=== PATIENT | female | born 1935 | race Caucasian/White ===

== ENCOUNTER → 2016-03-14 | Outpatient (CLI) | payer OTHER ==
[2016-03-14 14:01] LABS: BASO % 0.7 %; BASO ABS # 0.04 K/uL (0-0.2); COMPLETE YES; EOS % 3.9 %; HEMATOCRIT 40.6 % (37-47); IG% 0.2 %; LYMPH % 25.5 %; LYMPH ABS # 1.52 K/uL (1.2-3.4); MEAN CELL VOLUME 90.4 fL (80-100); MEAN CORPUSCULAR HEMOGLOBIN 29.4 pg (25-34); MEAN CORPUSCULAR HGB CONC 32.5 g/dl (32-36); MEAN PLATELET VOLUME 11.6 fL (7.4-10.4); MONO % 7.4 %; NEUT % 62.3 %; PLATELET COUNT 208 K/uL (130-400); RED BLOOD COUNT 4.49 M/uL (4.2-5.4); WHITE BLOOD COUNT 5.95 K/uL (4.8-10.8)
[2016-03-14 14:10] LABS: ALT/SGPT 27 U/L (12-78); BLOOD UREA NITROGEN 14 mg/dl (7-18); BUN/CREATININE RATIO 14.2 (10-20); CALCIUM 9.6 mg/dl (8.5-10.1); CARBON DIOXIDE 27 mmol/L (21-32); CHLORIDE 106 mmol/L (98-107); CHOLESTEROL 208 mg/dl (0-200); GLUCOSE 106 mg/dl (70-99); POTASSIUM 4.7 mmol/L (3.5-5.1); SODIUM 140 mmol/L (136-145)
[2016-03-14 14:13] LABS: ALB/GLOB RATIO 1.2 (0.9-2); ALKALINE PHOSPHATASE 65 U/L (45-117); AST/SGOT 22 U/L (15-37); CHOLESTEROL/HDL RATIO 3.1; HDL CHOLESTEROL 68 mg/dl; LDL CHOLESTEROL CALCULATED 112 mg/dl; TRIGLYCERIDES 141 mg/dl (0-150); VERY LOW DENSITY LIPOPROT CALC 28 mg/dl
== END | disposition home or self-care (01) ==
LOC: C.LABSPEC 14:41
PROVIDERS: ATTEND Family Medicine
DX: I10 Essential (primary) hypertension (principal); E78.2 Mixed hyperlipidemia; J30.9 Allergic rhinitis, unspecified; J45.30 Mild persistent asthma, uncomplicated; K21.9 Gastro-esophageal reflux disease without esophagitis

== ENCOUNTER → 2016-04-18 | Outpatient (CLI) | payer OTHER ==
[2016-04-18 14:04] LABS: BASO % 0.4 %; BASO ABS # 0.02 K/uL (0-0.2); COMPLETE YES; EOS % 3.6 %; HEMATOCRIT 39.9 % (37-47); LYMPH % 23.1 %; LYMPH ABS # 1.29 K/uL (1.2-3.4); MEAN CELL VOLUME 91.5 fL (80-100); MEAN CORPUSCULAR HEMOGLOBIN 29.8 pg (25-34); MEAN CORPUSCULAR HGB CONC 32.6 g/dl (32-36); MEAN PLATELET VOLUME 11.9 fL (7.4-10.4); MONO % 8.6 %; NEUT % 64.3 %; PLATELET COUNT 183 K/uL (130-400); RED BLOOD COUNT 4.36 M/uL (4.2-5.4); WHITE BLOOD COUNT 5.59 K/uL (4.8-10.8)
[2016-04-18 14:14] LABS: ALT/SGPT 24 U/L (12-78); AST/SGOT 12 U/L (15-37); BLOOD UREA NITROGEN 22 mg/dl (7-18); BUN/CREATININE RATIO 20.2 (10-20); CALCIUM 8.9 mg/dl (8.5-10.1); CARBON DIOXIDE 30 mmol/L (21-32); CHLORIDE 106 mmol/L (98-107); GLUCOSE 102 mg/dl (70-99); POTASSIUM 4.5 mmol/L (3.5-5.1); SODIUM 141 mmol/L (136-145)
[2016-04-18 14:16] LABS: ALB/GLOB RATIO 1.1 (0.9-2); ALKALINE PHOSPHATASE 59 U/L (45-117)
== END | disposition home or self-care (01) ==
LOC: C.LABSPEC 13:43
PROVIDERS: ATTEND Family Medicine
DX: I10 Essential (primary) hypertension (principal)

== ENCOUNTER → 2016-07-19 | Outpatient (CLI) | payer OTHER ==
[2016-07-19 15:12] LABS: ALT/SGPT 25 U/L (12-78); AST/SGOT 17 U/L (15-37); BLOOD UREA NITROGEN 19 mg/dl (7-18); BUN/CREATININE RATIO 18.9 (10-20); CALCIUM 8.9 mg/dl (8.5-10.1); CARBON DIOXIDE 28 mmol/L (21-32); CHLORIDE 106 mmol/L (98-107); GLUCOSE 98 mg/dl (70-99); POTASSIUM 4.7 mmol/L (3.5-5.1); SODIUM 140 mmol/L (136-145)
[2016-07-19 15:14] LABS: ALKALINE PHOSPHATASE 73 U/L (45-117)
== END | disposition home or self-care (01) ==
LOC: C.LABSPEC 13:44
PROVIDERS: ATTEND Family Medicine
DX: I10 Essential (primary) hypertension (principal)

== ENCOUNTER → 2017-05-08 | Outpatient (CLI) | payer OTHER ==
[2017-05-08 13:20] LABS: BASO % 0.3 %; BASO ABS # 0.02 K/uL (0-0.2); EOS % 3.7 %; EOS ABS # 0.24 K/uL (0-0.5); HEMOGLOBIN 13.4 g/dL (12.0-16.0); IG# 0.02 K/uL (0.00-0.02); LYMPH % 19.6 %; LYMPH ABS # 1.27 K/uL (1.2-3.4); MEAN CELL VOLUME 87.4 fL (80-100); MEAN CORPUSCULAR HEMOGLOBIN 28.6 pg (25-34); MEAN CORPUSCULAR HGB CONC 32.7 g/dl (32-36); MEAN PLATELET VOLUME 10.9 fL (7.4-10.4); MONO % 6.6 %; MONO ABS # 0.43 K/uL (0.11-0.59); NEUT % 69.5 %; NEUT ABS # 4.49 K/uL (1.4-6.5); PLATELET COUNT 218 K/uL (130-400); RED CELL DISTRIBUTION WIDTH CV 13.9 % (11.5-14.5); RED CELL DISTRIBUTION WIDTH SD 44.3 fL (36.4-46.3); WHITE BLOOD COUNT 6.47 K/uL (4.8-10.8)
[2017-05-08 14:16] LABS: ALBUMIN 3.7 gm/dl (3.4-5.0); ALT/SGPT 25 U/L (12-78); AST/SGOT 18 U/L (15-37); BLOOD UREA NITROGEN 15 mg/dl (7-18); CALCIUM 9.1 mg/dl (8.5-10.1); CARBON DIOXIDE 30 mmol/L (21-32); CHOLESTEROL 176 mg/dl (0-200); CREATININE 0.98 mg/dl (0.60-1.20); GLUCOSE 106 mg/dl (70-99); POTASSIUM 4.8 mmol/L (3.5-5.1); SODIUM 137 mmol/L (136-145)
[2017-05-08 14:20] LABS: ALKALINE PHOSPHATASE 73 U/L (45-117); LDL CHOLESTEROL CALCULATED 99 mg/dl; TOTAL PROTEIN 7.5 gm/dl (6.4-8.2)
== END | disposition home or self-care (01) ==
LOC: C.LABSPEC 12:39
PROVIDERS: ATTEND Family Medicine
DX: Z00.00 Encounter for general adult medical examination without abnormal findings (principal); I10 Essential (primary) hypertension; E78.2 Mixed hyperlipidemia

== ENCOUNTER 2017-05-19 16:13 | Emergency (ER) | payer OTHER ==
[~2017-05-19] VITALS: Ht 160 cm; Wt 78.0 kg
[2017-05-19 16:16] VITALS: TEMP 36.7; Ht 160 cm; Wt 78.0 kg
--- NOTE | 2017-05-19 17:01 | DIAGNOSTIC IMAGING REPORT ---
R HIP UNILATERAL 2 VIEWS CLINICAL HISTORY: R hip pain COMPARISON: None. DISCUSSION: No acute fractures are visualized. There is joint space narrowing involving the right hip. There is a mixed lytic/sclerotic lesion involving the right acetabulum measuring 5 cm. And remains in bone scan might be considered in follow-up to determine whether this is metabolically active. Sclerotic changes involve the symphysis pubis, are likely on a chronic stress related basis. IMPRESSION: 1. No acute fractures or dislocations 2. Moderate osteoarthritic changes within the left hip with moderate joint space narrowing 3. 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 A nuclear medicine bone scan might be considered in follow-up to determine whether this is a metabolically active lesion Electronically signed by: Munir Sheldon M.D. 05/19/2017 4:59 PM Dictated Date/Time: 05/19/2017 4:56 PM
[2017-05-19] MEDS ORDERED: TURM1CAP2 PO (17:28)
[2017-05-19] MEDS ORDERED: TOPI100T20 PO (17:28)
[2017-05-19] MEDS ORDERED: MONT1TAB3 PO (17:28)
[2017-05-19] MEDS ORDERED: RABE20TA5 PO (17:28)
[2017-05-19] MEDS ORDERED: ESTR1 PO (17:28)
[2017-05-19] MEDS ORDERED: CETI10TA84 PO (17:28)
[2017-05-19] MEDS ORDERED: ASPI81TA28 PO (17:28)
[2017-05-19] MEDS ORDERED: PRED20TA2 PO (17:29)
[2017-05-19] MEDS ORDERED: MULT-513 PO (17:34)
[2017-05-19] MEDS ORDERED: ADVIN25/60 INH (17:34)
[2017-05-19] MEDS ORDERED: CRAN500C2 PO (17:34)
[2017-05-19] MEDS ORDERED: FLUT0.15 NAE (17:34)
[2017-05-19] MEDS ORDERED: TRAM-10 PO (17:34)
[2017-05-19] MEDS ORDERED: VNTHFA/IN INH (17:34)
[2017-05-19] MEDS ORDERED: GARL1TAB8 PO (17:34)
[2017-05-19 17:43] VITALS: BP 158/72; PULSE 47; O2SAT 93
--- NOTE | 2017-05-19 18:38 | EMERGENCY ROOM VISIT NOTE ---
ED Visit Note First contact with patient: 16:28 I have personally evaluated this patient examined her and reviewed the pertinent labs and data. I have discussed the case with Luís Burrell, the physician administrative personal assistant and agree with the plan. Please refer to the PA note. This patient's been having chronic right hip pain. She looks well on exam. She has no neurologic deficits. She has good peripheral pulses in that leg. she has no tenderness the calf. X-rays show degenerative changes. We are going to arrange for her to follow-up with orthopedist and she is going to continue use her Ultram for pain. She should return if: increasing pain, worsening of symptoms, any new problems or concerns
--- NOTE | 2017-05-20 06:24 | EMERGENCY ROOM VISIT NOTE ---
ED Visit Note First contact with patient: 16:28 Chief Complaint: Right hip pain. History of Present Illness: Ms. Sherman is an 81-year-old white female who is brought into the ED via wheelchair accompanied by female friend complaining of right hip pain. Historically patient denies any previous significant injuries or surgeries to the right hip. Patient reports she has been having ongoing hip pain for the last 1.5 years. She has never had her hip pain evaluated previously. She reports over the last week her pain has increased and is radiating down towards her knee over the lateral aspect of the thigh. Currently she describes her pain as a sharp sensation. She rates her discomfort 8/10. Her pain worsens with palpation of the hip, ambulation and lying on the hip. She has not identified any alleviating factors related to the pain. Patient reports she does take ibuprofen during the day with mild relief of her discomfort and at night at sleep she takes tramadol which allows her to sleep but not lie on her hip. She denies any associated recent trauma; direct or repetitive, fevers, chills, sweats, skin eruptions, skin color changes , back pain, abdominal pain, genital paresthesias, bowel and bladder dysfunction , lower extremity weakness/numbness/tingling. Additionally patient does report approximately 2 weeks ago she was on oral steroids for a bronchitis and reported that she had significant improvement of her pain with the steroids. Review of Systems: As noted above in history of present illness. 8 body systems were reviewed and found to be negative as noted above. Past Medical History: Hypertension, kidney disease, asthma, status post hysterectomy and right knee arthroplasty. Current Medications: Medications Dose Route/Sig Max Daily Dose Days Date Category Dose Instructions Ultram (Tramadol HCl) 50 Mg Tab 50 Mg PO Q6 PRN 05/19/17 Reported Advair Diskus 250/50 60 Dose (Fluticasone Prop/Salmeterol) 1 Ea Aerp 1 Puff INH BID 05/19/17 Reported Ventolin Hfa (Albuterol) 200 Puffs/04709 Mcg Aers 2 Puffs INH Q6H PRN 05/19/17 Reported Flonase Allergy Relief (Fluticasone Propionate (Nasal)) 50 Mcg/Act Spr 1 [place] ALEYDA DAILY 05/19/17 Reported Mvi With Minerals (Multivitamins/Minerals) Tab 1 Tab PO DAILY 05/19/17 Reported Garlic Unknown Strength Tab 1 Tab PO DAILY 05/19/17 Reported Cranberry (Cranberry (Vaccinium Macrocarp) 500 Mg Cap 500 Mg PO DAILY 05/19/17 Reported Turmeric (Turmeric (Curcuma Longa)) Unknown Strength Cap 1 Tab PO DAILY 05/19/17 Reported Topamax (Topiramate) 100 Mg Tab 100 Mg PO DAILY 05/19/17 Reported Aciphex (Rabeprazole Sodium) Unknown Strength Tab 1 Tab PO DAILY PRN 05/19/17 Reported Aspirin Ec (Aspirin) 81 Mg Tab 81 Mg PO DAILY 05/19/17 Reported Singulair (Montelukast Sodium) 10 Mg Tab 10 Mg PO DAILY 05/19/17 Reported Zyrtec (Cetirizine HCl) 10 Mg Tab 10 Mg PO DAILY 05/19/17 Reported Estrace (Estradiol) 1 Mg Tab 1 Mg PO DAILY 05/19/17 Reported Allergies to Medications: Ampicillin, cephalexin, clindamycin, morphine and oxybutynin. Social History: Patient is currently retired; she lives by herself and feels safe in her home environment; she denies tobacco and alcohol use. Physical Examination: Vital Signs: Date Time Temp Pulse Resp B/P (MAP) Pulse Ox O2 Delivery O2 Flow Rate FiO2 05/19/17 17:43 47 18 158/72 93 05/19/17 16:16 36.7 50 16 182/76 95 Room Air GENERAL: 81-year-old female in mild to moderate distress due to pain, nontoxic- appearing, afebrile and hemodynamically stable. NEUROLOGICAL: Awake, alert and oriented to person, place and time. Answering questions appropriately and following commands. Good hand eye coordination. SKIN: Warm, dry and pink. No soft tissue eruptions or trauma noted. BACK: No tenderness over the bony lumbar spine. No tenderness or muscle spasm throughout the lumbar para musculature. THORAX: Lungs sounds are clear to auscultation and equal bilaterally with symmetrical chest wall. ABDOMEN: Flat, soft and nontender. Positive bowel sounds in all quadrants. No guarding, rigidity or organomegaly. RIGHT LOWER EXTREMITY: No gross bony deformity. No shortening or malrotation. Moderate tenderness over the femoral head and down the lateral aspect of the femur to mid shaft. There was no swelling, erythema, ecchymosis, bony deformity or bony crepitus throughout this area. No tenderness over the anterior hip/groin area and no tenderness throughout the posterior and buttocks area. She had full range of motion and 4/5 muscle strength with pain at the hip. There is also full range of motion of the knee and the ankle. SADA and VA test were positive for pain but she had full range of motion. 2+ patellar and Achilles deep tendon reflexes intact and equal bilaterally. Throughout the leg the skin was warm and pink and capillary refill is brisk. She was able to distinguish light sensations to all dermatomes. EXTREMITIES: Moves all extremities well on command and with purpose. All distal neurovascular statuses are intact and equal bilaterally. No calf tenderness or cords. ED Course: Patient is assessed as noted above. Patient's medication list was reviewed. Patient was offered pain medication and refused. Right Hip X-Rays: Were read by myself and the radiologist and shows no acute fractures or dislocations and moderate osteoarthritic changes within the hip with joint space narrowing. Radiologist also notes a 5 cm mixed lytic/ sclerotic lesion involving the right acetabulum of unclear etiology. Patient's case was reviewed with Dr. Sawyer; he independently assessed the patient we agreed on diagnostic approach, treatment, disposition and plan. Clinical Impression: Right hip acute osteoarthritis. Decision-Making: Initially my differential diagnosis I considered osteoarthritis , labral tear, impingement syndrome, occult fracture, bursitis, synovitis and other causes. Disposition: Patient discharged home in stable condition accompanied by female friend; prior to departure she was reassessed and subjectively reported she was feeling better and rated her discomfort 6/10. Plan: Patient was encouraged to continue her current medications as prescribed. Patient was prescribed 20 mg of prednisone once a day until followed up with orthopedics for definitive care and treatment. Patient does report she has been using her walker but still feels slightly unstable; I did encourage her to use her walker for improved stability. Patient was encouraged to use ice on the areas of pain 5-6 times a day for 20- 30 minutes. Patient was encouraged to follow-up with Dr. Gamez for specialty orthopedic care. Additionally patient reports she moved into this area not too long ago and did request information about possible follow-up with test developer for her kidney disease I did give her the contact information for the on-call test developer Dr. Angela Nance. Patient was encouraged return the ED for worsening/uncontrolled pain, right leg weakness/numbness/tingling or any new/concerning symptoms.
== END 2017-05-19 17:43 | disposition home or self-care (01) ==
LOC: C.EDB 16:14 → C.EDD 17:43
DX: M16.11 Unilateral primary osteoarthritis, right hip (principal); I12.9 Hypertensive chronic kidney disease with stage 1 through stage 4 chronic kidney disease, or unspecified chronic kidney disease; N18.9 Chronic kidney disease, unspecified; J45.909 Unspecified asthma, uncomplicated; Z79.82 Long term (current) use of aspirin; Z98.890 Other specified postprocedural states

== ENCOUNTER → 2017-05-21 | Outpatient (CLI) | payer OTHER ==
[~2017-05-21] MED LIST: ADVIN25/60 INH; ASPI81TA28 PO; CETI10TA84 PO; CRAN500C2 PO; ESTR1 PO; FLUT0.15 NAE; GARL1TAB8 PO; MONT1TAB3 PO; MULT-513 PO; PRED20TA2 PO; RABE20TA5 PO; TOPI100T20 PO; TRAM-10 PO; TURM1CAP2 PO; VNTHFA/IN INH
== END | disposition home or self-care (01) ==
LOC: C.RDSM 15:58
PROVIDERS: ATTEND Orthopaedic Surgery
DX: R52 Pain, unspecified (principal)

== ENCOUNTER → 2017-05-29 | Outpatient (CLI) | payer OTHER ==
--- NOTE | 2017-05-29 10:27 | DIAGNOSTIC IMAGING REPORT ---
PELVIS WITHOUT CONTRAST (MRI) CLINICAL HISTORY: R HIP ARTHRITIS, right acetabular mass COMPARISON STUDY: Conventional radiographic study dated 05/19/2017 FINDINGS: Imaging was performed in the axial and coronal planes. Corresponding to the right acetabular lesion is a 41 mm T1 hypointense lesion demonstrating a markedly hypointense T1 rim. The lesion demonstrates increased T2 signal. There is a small T2 bright extra osseous component measuring 11 mm. There is secondary iliopsoas edema and edema is visualized within the right iliac fossa. There are arthritic changes within the right hip with marked cartilaginous narrowing. The findings likely represent a degenerative intraosseous ganglion with a small extraosseous component. There is secondary inflammatory changes involving the iliopsoas. T2 bright lesions are also present within the left acetabular region, likely representing degenerative cysts. Osteoarthritic changes on the left are more mild than on the right. Incidental note is made of colonic diverticulosis. There is no pathologic adenopathy. This scan was reviewed with a fellow radiologist. IMPRESSION: 1. The right acetabular lesion described on conventional radiographic evaluation, in all likelihood represents a degenerative intraosseous ganglion with a small extraosseous component. The extraosseous component results in iliac fossa edema and secondary inflammatory change within the right iliopsoas. 2. Moderately advanced osteoarthritic changes within the right hip. Mild osteoarthritic changes of the left hip. 3. Colonic diverticulosis Electronically signed by: Munir Sheldon M.D. 05/29/2017 10:26 AM Dictated Date/Time: 05/29/2017 10:11 AM
== END | disposition home or self-care (01) ==
LOC: C.MRIBC 08:44
PROVIDERS: ATTEND Orthopaedic Surgery
DX: M16.11 Unilateral primary osteoarthritis, right hip (principal); M25.851 Other specified joint disorders, right hip

== ENCOUNTER 2017-09-17 06:30 | Inpatient (IN) | payer OTHER ==
[2017-08-13 07:58] VITALS: BMI 29.0
[2017-08-26 10:10] VITALS: Ht 162.6 cm; Wt 79.7 kg
--- NOTE | 2017-08-26 11:14 | PAT Medication Instructions ---
Service Date Aug 26, 2017. Current Home Medication List Albuterol Hfa (Ventolin Hfa), 2 PUFFS INH Q6H PRN for SOB/Wheezing Albuterol Sulf (Proventil 0.083% 2.5MG/3ML), 2.5 MG INH QID PRN for SOB/Wheezing Aspirin (Aspirin Ec), 81 MG PO QAM Cetirizine (Zyrtec), 10 MG PO QPM Diltiazem Hcl Ext Rel (Tiazac), 120 MG PO QAM Estradiol (Estrace), 1 MG PO QAM Fluticasone Prop/Salmeterol (Advair Diskus 250/50 60 Dose), 1 PUFF INH QAM Fluticasone Propionate (Nasal) (Flonase Allergy Relief), 1 SPRAY ALEYDA QAM Metoprolol Succ (Toprol Xl) (Toprol-Xl ), 100 MG PO QAM Montelukast Sodium (Singulair), 10 MG PO HS Rabeprazole Sodium (Aciphex), 1 TAB PO QAM Simvastatin (Zocor), 40 MG PO QPM Tramadol (Ultram), 50 MG PO Q6 PRN for Pain Medication Instructions For Your Scheduled Surgery - Check with surgeon for instructions: Estradiol (Estrace), 1 MG PO QAM - Take the following medications the morning of surgery with a sip of water: Rabeprazole Sodium (Aciphex), 1 TAB PO QAM Tramadol (Ultram), 50 MG PO Q6 PRN for Pain (okay to take up to 4 hours prior to surgery if needed) Metoprolol Succ (Toprol Xl) (Toprol-Xl ), 100 MG PO QAM Fluticasone Prop/Salmeterol (Advair Diskus 250/50 60 Dose), 1 PUFF INH QAM Fluticasone Propionate (Nasal) (Flonase Allergy Relief), 1 SPRAY ALEYDA QAM Diltiazem Hcl Ext Rel (Tiazac), 120 MG PO QAM Albuterol Hfa (Ventolin Hfa), 2 PUFFS INH Q6H PRN for SOB/Wheezing (if needed) Albuterol Sulf (Proventil 0.083% 2.5MG/3ML), 2.5 MG INH QID PRN for SOB/ Wheezing (if needed) Aspirin (Aspirin Ec), 81 MG PO QAM - Take the following medications as scheduled the night before surgery: Simvastatin (Zocor), 40 MG PO QPM Tramadol (Ultram), 50 MG PO Q6 PRN for Pain (if needed) Montelukast Sodium (Singulair), 10 MG PO HS Cetirizine (Zyrtec), 10 MG PO QPM Albuterol Hfa (Ventolin Hfa), 2 PUFFS INH Q6H PRN for SOB/Wheezing (if needed) Albuterol Sulf (Proventil 0.083% 2.5MG/3ML), 2.5 MG INH QID PRN for SOB/ Wheezing (if needed) If you have any questions please call us at [phone] or [phone] or [phone]
[2017-08-26 11:48] LABS: ALBUMIN 3.6 gm/dl (3.4-5.0); CALCIUM 8.9 mg/dl (8.5-10.1); CREATININE 1.13 mg/dl (0.60-1.20); POTASSIUM 4.2 mmol/L (3.5-5.1); PTT PATIENT 25.6 SECONDS (21.0-31.0); TOTAL PROTEIN 7.1 gm/dl (6.4-8.2)
--- NOTE | 2017-08-26 11:52 | DIAGNOSTIC IMAGING REPORT ---
TWO VIEW CHEST CLINICAL HISTORY: Preoperative examination. FINDINGS: PA and lateral chest radiographs are obtained. No prior studies are available for comparison at the time of dictation. The heart is enlarged and there is atherosclerotic calcification of the thoracic aorta. The pulmonary vasculature is noncongested. There is a large hiatal hernia. Nonspecific interstitial thickening is likely chronic. There is bibasilar atelectasis. No airspace consolidation or pleural effusion is identified. There is no pneumothorax. The skeletal structures are osteopenic. Degenerative change and hyperkyphosis are noted in the thoracic spine. IMPRESSION: 1. Cardiomegaly with no active disease in the chest. 2. Large hiatal hernia. Electronically signed by: Deng Rolle M.D. 08/26/2017 11:51 AM Dictated Date/Time: 08/26/2017 11:50 AM
--- NOTE | 2017-08-26 12:13 | History and Physical ---
History & Physical Date of Service Aug 26, 2017. History & Physical CHIEF COMPLAINT: Right hip pain. HISTORY OF PRESENT ILLNESS: This 82-year-old female presents to clinic today for preoperative history and physical. The patient complains of a 2+ year history of significant right hip pain with no appreciable injury. She states that over the past few years, she has experienced mild relief with prescription tramadol. She states that her pain increases when she stands and refers pain localization to her right groin. The patient has failed conservative treatment with physical therapy and ultrasound-guided steroid injections. She states she has had to use a cane to ambulate since April and that the pain is affecting her activities of daily living. PAST SURGICAL HISTORY: Right total knee arthroplasty, hysterectomy, bilateral cataract surgery. PAST MEDICAL HISTORY: Stage III chronic kidney disease, hypertension, hyperlipidemia, gastroesophageal reflux, bronchitis, asthma, hiatal hernia, obesity. FAMILY HISTORY: Positive for heart disease, cancer and diabetes. ALLERGIES: THE PATIENT HAS MEDICATION ALLERGIES TO AMPICILLIN, CLINDAMYCIN, MORPHINE, KEFLEX and DITROPAN. CURRENT MEDICATIONS: Albuterol HFA 90 mcg inhaler as needed for wheezing, aspirin 81 mg daily, Zyrtec 10 mg daily, diltiazem 120 mg daily, estradiol 1 mg daily, Flonase 50 mg daily, Toprol-XL 100 mg daily, Singulair 10 mg daily, Aciphex 20 mg daily, Zocor 40 mg at bedtime, tramadol 50 mg tablets 1 tab every 4 hours as needed for pain. SOCIAL HISTORY: The patient denies a history of smoking, alcohol or illicit drug use. PHYSICAL EXAMINATION: Skin: The patient's skin is normal in appearance. No open skin lesions or discharge. Eyes: Pupils are equal and reactive to light and accommodating. Extraocular movements are intact. Throat: Posterior oropharynx clear with absence of edema, erythema or exudate. Cardiovascular exam: The patient has a regular rate and rhythm with no murmurs or gallops appreciated. Lungs: Auscultation of lung sosa reveals clear breath sounds throughout, but diminished air flow in the bases. There is no wheezing, rales or rhonchi appreciated. Abdomen is mildly obese, nondistended, nontender with normoactive bowel sounds. Extremities: Right hip, the patient has a positive straight leg raise test, a positive Stinchfield test flexion of the hip to 80 degrees, internal rotation to 5 degrees and external rotation to 30 degrees, all with referred pain to the groin area. There is no edema, erythema, ecchymosis, warmth or palpable bony deformity. The patient has difficulty performing passive abduction or adduction. She is neurovascularly intact in the right lower extremity. Her peripheral pulses are palpable. Her capillary refill is less than 2 seconds. Neurologic exam: Cranial nerves II-XII are intact with no motor or sensory deficit. Psychological/General exam: Patient is Alert and oriented x 3 with proper grooming and hygiene. DIAGNOSIS: Right hip arthritis; acetabular cyst. PROCEDURE: Right total hip arthroplasty; bone grafting of acetabular cyst; possible biopsy. PLAN: The patient is scheduled to undergo this procedure with [facility] with Dr. Jonatan Kaur on September 11, 2017. Risks and complications of the surgery such as infection, bleeding, pain, scarring, nerve and blood vessel damage, weakness, wound problems, stiffness, incomplete relief of symptoms, heart attack, stroke, , hardware failure, loosening or fracture, dislocation, leg length inequality, blood clots and embolism were explained to the patient by Dr. Kaur during her last visit. The patient understood the risks and informed consent to perform the procedure was obtained. We have obtained medical clearance from the patient's oracle developer, Dr. Jay. She states she has an appointment this with her PCP, Dr. Serrano, and we will obtain clearance from him as well. We will also obtain a CBC with differential, complete metabolic panel, PT, INR, PTT, blood type and screen, urinalysis, urine culture, EKG, chest x-ray, hemoglobin A1c and a nasal swab for MRSA prior to the procedure. The patient states she will obtain these necessary tests this morning before her preanesthesia clearance appointment. The patient states that she has a hip kit at home from her 's previous hip surgery. She has a walker at home that she will bring with her on the day of surgery. She would like to do in-home therapy with [facility]. I provided her with a card to contact them and I also filled out the proper paperwork to have them do a preoperative evaluation for the patient. Advised Ms. Sherman that we will provide her with a prescription for postoperative pain medication for Extra Strength Tylenol and that she will increase her aspirin to 2 times daily for 30 days postoperatively for DVT prophylaxis. She will also use ASHISH stockings and SCDs on the lower extremities to prevent blood clots, as well. The patient states she is not able to take anti-inflammatories, so I will not provide her with a prescription for Celebrex. The patient was given information about lectures she can attend at [facility] on the first and third Friday of each month regarding joint replacement. She was also given information about antibiotics prior to dental procedures. She states she already has this established fro her previous total knee arthroplasty. I provided her with a handicap placard that she can use for 6 months after the procedure. The patient is scheduled for a postoperative followup with myself on September 19, at 12:45 for her 2-week postoperative followup. At that time, she states if she is doing well, she would like an order for outpatient physical therapy that she will obtain in the [facility]. The patient verbalized understanding of all information provided during today's visit, thanks us for the care she has received and states that if she has questions or concerns that should arise prior to her surgery date, she will contact the clinic accordingly.
[~2017-09-17] VITALS: Ht 162.6 cm; Wt 79.7 kg
[2017-09-17] VITALS (9 sets, daily range): BP systolic 126–169; BP diastolic 50–72; PULSE 49–64; TEMP 36.3–36.7; O2SAT 92–96
[2017-09-17] MEDS: TRANEXAMIC ACID INJ 1,000 MG x 2 Bags IV SCH ×4 (06:00→06:30)
[~2017-09-17 06:30] MED LIST changes: +ACETAMINOPHEN 500 MG TAB PO SCH; +ALBINS/ INH; +CEFAZOLIN 2000MG IV PUSH 15 ML IV SCH; +CHECK SCOPOLAMINE PATCH PLACEMENT SCH; -CRAN500C2 PO; +CeleBREX 200 MG CAP PO SCH; +DEXAMETHASONE 4 MG TAB PO SCH; +DILT120C68 PO; +FAMOTIDINE 20 MG TAB PO SCH; -GARL1TAB8 PO; +LACTATED RINGER'S 1000ML 1,000 ML IV SCH; +LACTATED RINGER'S 1000ML 500 ML IV SCH; +LACTATED RINGER'S 1000ML IV SCH; +METO100T44 PO; -MULT-513 PO; -PRED20TA2 PO; +ROPIVACAINE 5MG/ML 30 ML 150 MG, BUPIVACAINE 0.5% MPF INJ 30 ML, EpINEphrine HCL INJ 0.... INFIL SCH; +SCOPOLAMINE 1.5 MG TDSY TD SCH; +SIMV40TA2 PO; -TOPI100T20 PO; +TRAMADOL HCL 50 MG TAB PO SCH; +TRANEXAMIC ACID INJ 1,000 MG x 2 Bags IV SCH; -TURM1CAP2 PO
[2017-09-17] MEDS ORDERED: BUPIVACAINE 0.5 % 5 MG/1 ML PF 10ML VIAL ONE (06:45)
[2017-09-17] MEDS ORDERED: NURSING VERBAL MED ORDER ONE ×3 (07:00→18:45)
--- NOTE | 2017-09-17 07:11 | History & Physical Bridge Note ---
H&P Re-Evaluation Bridge Note: I have examined the patient, reviewed the History & Physical and in the interval since the performance of the History & Physical I have noted the following changes of clinical significance: No changes noted
[2017-09-17] MEDS ORDERED: ACET-1256 PO (07:17)
[2017-09-17 07:50] LABS: BASO % 0.2 %; BASO ABS # 0.01 K/uL (0-0.2); EOS ABS # 0.15 K/uL (0-0.5); HEMATOCRIT 39.5 % (37-47); HEMOGLOBIN 12.7 g/dL (12.0-16.0); IG# 0.01 K/uL (0.00-0.02); LYMPH % 29.3 %; LYMPH ABS # 1.45 K/uL (1.2-3.4); MEAN CELL VOLUME 90.8 fL (80-100); MEAN CORPUSCULAR HEMOGLOBIN 29.2 pg (25-34); MEAN PLATELET VOLUME 10.5 fL (7.4-10.4); MONO % 9.5 %; MONO ABS # 0.47 K/uL (0.11-0.59); NEUT % 57.8 %; NEUT ABS # 2.86 K/uL (1.4-6.5); PLATELET COUNT 170 K/uL (130-400); RED CELL DISTRIBUTION WIDTH CV 13.6 % (11.5-14.5); RED CELL DISTRIBUTION WIDTH SD 44.9 fL (36.4-46.3); WHITE BLOOD COUNT 4.95 K/uL (4.8-10.8)
[2017-09-17 07:56] LABS: MEAN CORPUSCULAR HGB CONC 32.2 g/dl (32-36)
[2017-09-17] MEDS ORDERED: LIDOCAINE HCL 2% 2 ML VIAL (20MG/ML) ONE (08:21)
[2017-09-17] MEDS ORDERED: PROPOFOL IV EMULSION 10 MG/ML 20 ML VIAL ONE ×2 (08:21→11:02)
[2017-09-17] MEDS ORDERED: MIDAZOLAM HCL 1 MG/ML 2ML VIAL ONE ×2 (08:21→11:24)
[2017-09-17] MEDS ORDERED: ORTHO JOINT ANESTHETIC ONE (09:42)
[2017-09-17] MEDS ORDERED: POVIDONE-IODINE OP SOLN 30 ML BTL ONE (09:42)
[2017-09-17] MEDS ORDERED: CEFTRIAXONE SOD INJ 1000 MG in DEXTROSE 5% 50ML IV ONE (09:45)
[2017-09-17] MEDS ORDERED: EpHEDrine SULFATE 50MG/5ML SYR ONE (10:32)
[2017-09-17] MEDS ORDERED: ALBUMIN HUMAN 5% 12.5 GM/250 ML VIAL IV ONE (11:18)
--- NOTE | 2017-09-17 11:50 | [facility] Post Operative Brief Note ---
Immediate Operative Summary Operative Date Sep 17, 2017. Pre-Operative Diagnosis Right hip arthritis Post-Operative Diagnosis Same Procedure(s) Performed Right total hip arthroplasty Surgeon Natasha Vice President Of Compliance Surgeon(s) Ashok Soria MD and Iva Blevins PA-C Estimated Blood Loss 200 cc Findings Consistent with Post-Op Diagnosis Fluids (cc crystalloids) 1700 cc crystalloid Specimens Femoral head Drains None Anesthesia Type Spinal MAC Complication(s) none Disposition Accompanied Pt To Recover: no Disposition: Recovery Room / PACU
[2017-09-17] MEDS ORDERED: EpHEDrine SULFATE INJ 50 MG/ML AMP ONE (12:02)
[2017-09-17] MEDS ORDERED: METOCLOPRAMIDE HCL INJ 5 MG/ML 2 ML VIAL IV PRN (12:30)
[2017-09-17] MEDS ORDERED: ONDANSETRON INJ 2 MG/ML 2 ML VIAL IV PRN ×2 (12:30→13:00)
[2017-09-17] MEDS ORDERED: BISACODYL 10 MG SUPP PR PRN (12:30)
[2017-09-17] MEDS ORDERED: MAGNESIUM HYDROXIDE SUSP 30 ML UDC PO PRN (12:30)
[2017-09-17] MEDS ORDERED: DiphenhydrAMINE HCL 50 MG/ML VIAL IV PRN (12:30)
[2017-09-17] MEDS ORDERED: ALUMINUM/MAGNESIUM/SIMETH (MAALOX MAX) 30 ML UDC PO PRN (12:30)
[2017-09-17] MEDS ORDERED: HYDROmorphone INJ 0.5 MG/0.5 ML SYR IM PRN (12:30)
--- NOTE | 2017-09-17 12:44 | OPERATIVE REPORT ---
DATE OF OPERATION: 09/17/2017 PREOPERATIVE DIAGNOSIS: Right hip osteoarthritis. POSTOPERATIVE DIAGNOSIS: Right hip osteoarthritis. OPERATION PERFORMED: Right total hip arthroplasty. SURGEON: Jonatan Kaur M.D. CLEAN OUT DRILLER: Ashok Soria M.D. and Margareth Blevins PA-C. ESTIMATED BLOOD LOSS: 200 mL IV FLUIDS: 1700 mL crystalloid. SPECIMENS: Femoral head and acetabular reamings. COMPLICATIONS: None. IMPLANTS: 1. DePuy [place] Gription, 52 mm outer diameter sector shell. 2. A 6.5 x 45 mm cancellous bone screw. 3. DePuy Ultrex polyethylene liner for a 32 femoral head. 4. Size 6 standard offset Major femoral stem with 12/14 taper. 5. A 32 mm femoral head with a 12/14 taper and a +1 offset. INDICATIONS: Ms. Sherman is an 82-year-old female who has had right hip pain that has been refractory to conservative management. X-ray show end-stage osteoarthritis. Physical exam findings are consistent with hip arthritis. I had a long discussion with her about risks and benefits of surgery, alternatives to surgery and expected outcomes. After reviewing all these, she elected to proceed with surgery. All questions were answered. Informed consent was signed. OPERATIVE FINDINGS: A standard uncemented right total hip arthroplasty was performed. The patient had findings consistent with degenerative osteoarthritis. DESCRIPTION OF PROCEDURE: The patient was identified in the preoperative holding area, where a surgical site was marked. She was given a spinal anesthetic and brought back to main operating room where she was placed on the operating room table, moved in the lateral decubitus position and all bony prominences were padded. Perioperative antibiotics and tranexamic acid were administered. She was prepped and draped in normal sterile fashion. Prior to incision, multidisciplinary timeout was called. All in the room were in agreement. Began by making 16 cm long incision for a posterolateral approach to the hip. The fascia was incised in line with the incision. Charnley bow was placed. The trochanteric bursa was excised. The piriformis, short external rotators and quadratus femoris were dissected off the posterior aspect of the femur. Box cut was made in the capsule. The femoral head was dislocated. Femoral neck cut was made at 14 mm, which was our preoperative template. Acetabulum was then exposed. Contents of cotyloid fossa were excised with electrocautery. We then sequentially reamed up to a size 52 cup. A single cancellous bone screw was placed. Excellent fixation was obtained. We then placed our polyethylene liner for a 32 mm femoral head. This was impacted down into position. The locking mechanism was checked to make sure it had engaged, which it had. Next, the proximal femur was exposed. The lateral neck was excised with a cookie cutter and rongeur. Intramedullary guide was used followed by the lateralizing reamer. We then reamed her up to a size 6. The broaches were then used to broach her all the way up to a size 6. We then used a standard neck with a +1 offset head and reduced the hip without difficulty. The patient's leg lengths were then checked, which showed her to be symmetric. Shuck test was appropriate. She had no impingement, extension and external rotation. She was stable in a sleeper position. At 90 degrees of hip flexion, she could be internally rotated up to 50 degrees before leaving out of the cup. I was very happy with the stability exam. Therefore, we removed the broach, irrigated femoral canal and opened up the real size 6 standard offset Major stem. This was impacted down position. It sat at the same level as our broach. We therefore opened up the +132 mm femoral head. The trunnion was cleaned and dried and then the head was impacted onto the trunnion. The hip was relocated without difficulty. The wound was irrigated with a Betadine, which was allowed to sit for 3 minutes. We then injected the capsule and subcutaneous tissues with a periarticular injection cocktail for postoperative pain control. The posterior capsule and the short external rotators as well as the piriformis were repaired through a single bone tunnel in the greater trochanter and through the abductor tendon. These sutures were tied down over a bony bridge in the posterior aspect of the femur. The fascia was run with a looped #1 PDS. Two layers of #1 PDS were used for subcutaneous tissues. The 2-0 and 3-0 Monocryl were used for the deep dermis in the subcuticular layer in running fashion. Steri-Strips were applied followed by Silverlon dressing. The patient was then rolled supine and transferred to recovery room in stable condition. POSTOPERATIVE COURSE: The patient will be admitted to the hospital overnight for pain control and monitoring as well as to work with physical and occupational therapy. She will be on aspirin for DVT prophylaxis. We will plan on discharging her home tomorrow. She will be on posterior hip precautions. I attest to the content of the Intraoperative Record and any orders documented therein. Any exception s are noted below.
[2017-09-17] MEDS ORDERED: EpHEDrine SULFATE INJ 50 MG/ML AMP IV PRN (13:00)
[2017-09-17] MEDS ORDERED: ATROPINE SULFATE 0.1 MG/ML 5ML SYR IV PRN (13:00)
[2017-09-17] MEDS ORDERED: FENTANYL CITRATE INJ 50 MCG/1 ML 2 ML VIAL IV PRN (13:00)
--- NOTE | 2017-09-17 13:15 | DIAGNOSTIC IMAGING REPORT ---
AP PELVIS AND RIGHT HIP 2 VIEWS CLINICAL HISTORY: Right hip arthritis status post arthroplasty COMPARISON STUDY: 09/02/2017 FINDINGS: There are postsurgical changes of a total right hip arthroplasty. The femoral and acetabular components appear well seated. No fractures or dislocations are visualized. IMPRESSION: Postsurgical changes of a total right hip arthroplasty. Electronically signed by: Munir Sheldon M.D. 09/17/2017 1:14 PM Dictated Date/Time: 09/17/2017 1:13 PM
--- NOTE | 2017-09-17 15:23 | Discharge Instructions ---
Discharge Instructions Date of Service Sep 17, 2017. Admission Reason for Admission: Right Hip Arthritis, Acetabular Cyst Discharge Discharge Diagnosis / Problem: Right hip arthritis; Acetabular Cyst Discharge Goals Goal(s): Decrease discomfort, Improve function, Increase independence Activity Recommendations Activity Limitations: as noted below Lifting Limitations: until after follow-up appointment Exercise/Sports Limitations: until after follow-up appointment May Resume Sexual Activity: after follow-up appointment Shower/Bathe: tomorrow, keep incision dry Driving or Machine Use: No driving until cleared by regional facilities specialist Weightbearing Status: Right weightbearing (as tolerated with walker assistance) . Instructions / Follow-Up Instructions / Follow-Up Post-operative Instructions Dear Patient and Family/Friends, Before you are discharged from the hospital, it is important to know what to expect when you get home after surgery. To that end, we have created this sheet of discharge instructions which covers many commonly asked questions. Make sure you go through this sheet in its entirety with your nurse before you are discharged. Please note that we will go over the specifics of your surgery and recovery when you return for your first post-operative visit. Sincerely, Dr. Kaur Pain Expect to be in a fair amount of pain after surgery. Remember, our goal is not to eliminate your pain, but to make it tolerable. It is a good idea to stay ahead of your pain by taking the medications you were prescribed once you get home. Typically, the pain starts improving 3-7 days after surgery. You should start weaning off the narcotic pain medication (oxycodone, hydrocodone, hydromorphone, morphine) as soon as your pain improves. Please call our office if your pain is not adequately controlled. Ice Ice your operative site at least 5 times a day for 15-30 minutes at a time. Make sure you have a thin cloth between the ice or cooling unit and your skin to prevent blankenship bite. This is especially important if you received a nerve block. Continue icing your operative site for the first 5-7 days after surgery , then as needed. Diet/Nausea/Vomiting Start by drinking clear liquids and eating crackers. If you can tolerate this, then you may resume your normal diet. If you feel nauseated or vomit, take Zofran/ondansetron (if prescribed). Please call our office if you have intractable nausea or vomiting, or, if after hours, you may go to the Emergency Room for help. Constipation Constipation is a common side effect of narcotic pain medication. If you have not had a bowel movement within 2 days after surgery, we recommend purchasing an over the counter laxative such as Milk of Magnesia, Dulcolax, or Miralax from a local pharmacy, and taking it as instructed. Call our clinic if any questions. Slings and Braces If you were placed in a sling or brace, it must be worn at all times, including sleep. You may remove your sling or brace for physical therapy, home exercises , and showering. The length of time you will be in your brace and range of motion restrictions depends on what surgery you had; these details will be reviewed at your first post-operative appointment. Nerve block The anesthesia team sometimes places a nerve block to help with post-operative pain control. This results in significant numbness and inability to move the extremity. The nerve block usually wears off in 8-12 hours, but sometimes can last up to 24 hours. Please call our office if you are still unable to move your extremity after 24 hours, unless you received a pain pump to take home. Nerve blocks typically wear off quickly, so start taking pain medication as soon as you start feeling soreness near your surgical site. Weight bearing and Range of Motion. Do not bear any weight through your operative extremity immediately after surgery. If you had upper extremity surgery, do not lift anything with that arm. If you are in a knee brace, keep it locked in place until your follow-up. We will discuss your weight bearing, range of motion, and lifting restrictions in detail at your first post-operative appointment. Continuous Passive Motion (CPM) Machine If you were prescribed a CPM machine, it will start after your first post- operative appointment, at which time we will give you instructions on the range of motion settings and duration of treatment Physical therapy You will be given a prescription for physical therapy or occupational therapy at your first post-operative appointment. Typically, patients start therapy within 1 week of surgery Wound care and showering We will inspect your wound at your first post-operative visit, and may do a dressing change at that time. Most patients will be in a water-proof dressing that is removed 14 days after surgery. It is normal to see some dried blood on the dressing. Do not remove your dressing, paper strips or sutures yourself unless you are given permission. Showering is allowed the day after surgery. Do not scrub or remove any dressings. The wound should not be submerged underwater (i.e. in a bathtub or pool) until 4 weeks after surgery ASHISH stockings If you were given white stockings, these are to be worn at all times except to shower (on both legs) for the first 2 weeks after surgery. Driving You may not drive while taking narcotic pain medication or while in a cast, splint, sling or brace. You, the patient, need to make the final determination about when you are safe to drive, however, the earliest you may consider driving after surgery is below: Hand/Wrist/Elbow Surgery: 3 days Shoulder Surgery: 2 weeks Hip,/Knee/Ankle Surgery: 4 weeks Fracture repair: 6 weeks Return to Work Your return to work depends on what surgery was done and what type of work you do. Please bring any paperwork your employer needs completed to your first post -operative visit. Also, bring a description of your job duties, as this helps us to understand what risks you may face at work. Travel Avoid long distance travel (greater than 1 hour) in airplanes and cars for the first 6 weeks after surgery. If you must travel, you need to have a Doppler ultrasound done before you travel to rule out a blood clot in your legs. Follow-up You should have a follow-up appointment already scheduled 1-2 days after surgery. If not, please contact our office to make this appointment before you leave the hospital. When to call the office It is normal to have swelling and bruising in the limb that was operated on. This will improve with time. It is also normal to have fevers for the first 2 days after surgery. Reasons you should call your doctor include: Uncontrolled pain; Nausea, vomiting, or constipation that does not improve with medication; Fevers over 101.5, chills, sweats; Drainage or bleeding from the wound; Foul odor; Spreading areas of redness; Any other concerns Current Hospital Diet Patient's current hospital diet: Regular Diet Discharge Diet Recommended Diet: Regular Diet Procedures Procedures Performed: Right total hip arthroplasty Pending Studies Studies pending at discharge: no Laboratory Results Hemoglobin A1c Test 08/26/17 10:43 Range/Units Estimated Average Glucose 126 mg/dl Hemoglobin A1c 6.0 H 4.5-5.6 % Medical Emergencies . Who to Call and When: Medical Emergencies: If at any time you feel your situation is an emergency, please call 911 immediately. . Non-Emergent Contact Non-Emergency issues call your: Primary Care Provider Call Non-Emergent contact if: you have a fever, temperature is above 101.5, your pain is not controlled, your pain is worsening, wound has increased drainage, you have any medication questions . "Provider Documentation" section prepared by Asa Dixon. . Medical Officer Psychiatry Recommendations Medical Officer Psychiatry Recommendations: Practice total hip precautions. WBAT on Rt leg with walker assistance Increase your daily aspirin to twice daily for 30 days post operatively to prevent blood clots Take your daily Tylenol as previously instructed. I did prescribe Oxycodone for breakthrough pain. If you do not feel that you need it you may just use your Rx Tramadol and discard the Oxycodone. Depending on how well you are progressing, we may provide you with an order for outpatient physical therapy at you 2 wk f/u visit in the clinic ([facility]) [place] Drug Monitoring Program Search Results: patient reviewed within database, no issues identified, see additional documentation
[2017-09-17] MEDS ORDERED: RXC5 PO (15:24)
[2017-09-17] MEDS: CHECK SCOPOLAMINE PATCH PLACEMENT SCH (15:41)
--- NOTE | 2017-09-17 15:51 | Anesthesiology Progress Note ---
Anesthesia Post Op Note Date & Time Sep 17, 2017 at 15:51 Vital Signs Pain Intensity: 0 Vital Signs Past 12 Hours Date Time Temp Pulse Resp B/P (MAP) Pulse Ox O2 Delivery O2 Flow Rate FiO2 09/17/17 15:22 36.3 54 16 137/64 (88) 95 Nasal Cannula 2.5 09/17/17 14:44 55 16 143/71 (95) 95 09/17/17 14:17 93 Nasal Cannula 2.0 09/17/17 14:15 93 Nasal Cannula 2.0 09/17/17 14:12 36.3 54 16 133/50 (77) 93 2.0 09/17/17 14:00 51 25 09/17/17 14:00 51 25 94 09/17/17 13:57 115/62 09/17/17 13:55 51 16 94 09/17/17 13:55 51 16 09/17/17 13:54 51 14 94 09/17/17 13:54 53 14 09/17/17 13:52 130/57 09/17/17 13:49 52 15 94 09/17/17 13:49 52 15 09/17/17 13:47 122/63 09/17/17 13:44 53 22 09/17/17 13:44 53 22 94 09/17/17 13:42 132/57 09/17/17 13:39 58 15 95 09/17/17 13:39 52 15 09/17/17 13:37 133/55 09/17/17 13:34 52 13 94 09/17/17 13:34 53 13 09/17/17 13:31 125/62 09/17/17 13:29 57 22 09/17/17 13:29 60 22 94 09/17/17 13:27 125/49 09/17/17 13:24 50 13 09/17/17 13:24 49 13 94 09/17/17 13:21 124/76 09/17/17 13:19 57 14 93 09/17/17 13:19 50 14 09/17/17 13:16 117/70 09/17/17 13:14 51 14 09/17/17 13:14 51 14 94 09/17/17 13:12 117/70 09/17/17 13:09 51 15 09/17/17 13:09 51 15 94 09/17/17 13:08 36.8 63 16 125/62 (94) 95 Nasal Cannula 2 09/17/17 13:07 129/64 09/17/17 13:04 55 16 94 09/17/17 13:04 52 16 09/17/17 13:03 49 14 09/17/17 13:03 49 14 129/56 95 09/17/17 12:58 49 15 09/17/17 12:58 49 15 95 09/17/17 12:57 131/55 09/17/17 12:57 131/55 09/17/17 12:54 66 17 97 09/17/17 12:54 66 17 97 09/17/17 12:54 55 17 09/17/17 12:54 55 17 09/17/17 12:53 132/61 09/17/17 12:53 132/61 09/17/17 12:49 50 20 96 09/17/17 12:49 51 20 09/17/17 12:49 51 20 09/17/17 12:49 50 20 96 09/17/17 12:47 112/50 09/17/17 12:47 112/50 09/17/17 12:44 50 15 09/17/17 12:44 50 15 09/17/17 12:44 50 15 96 09/17/17 12:44 50 15 96 09/17/17 12:43 49 12 96 09/17/17 12:43 49 12 09/17/17 12:41 109/53 09/17/17 12:40 105/54 09/17/17 12:35 49 16 106/61 (74) 95 Oxymask 10 09/17/17 12:25 56 12 113/52 (75) 97 Oxymask 10 09/17/17 12:18 36.4 48 16 110/55 (73) 97 Oxymask 10 09/17/17 07:55 36.7 49 18 169/72 96 Room Air Notes Mental Status: alert / awake / arousable, participated in evaluation Pt Amnestic to Procedure: Yes Nausea / Vomiting: adequately controlled Pain: adequately controlled Airway Patency, RR, SpO2: stable & adequate BP & HR: stable & adequate Hydration State: stable & adequate Neuraxial Anesthesia: was administered, sensory block is resolving Anesthetic Complications: no major complications apparent
[2017-09-17] MEDS ORDERED: ALBUTEROL HFA 8 GM INHALER INH PRN (16:30)
[2017-09-17] MEDS ORDERED: ALBUTEROL 0.083% NEBU SOLN 3 ML VIAL INH PRN (16:30)
[2017-09-17] MEDS ORDERED: TRANEXAMIC ACID INJ 1,000 MG in SODIUM CHLORIDE 0.9% 100ML 100 ML IV ONE (18:30)
[2017-09-17] MEDS ORDERED: HYDROmorphone INJ 0.5 MG/0.5 ML SYR IV PRN (19:00)
[2017-09-17] MEDS ORDERED: TRAMADOL HCL 50 MG TAB PO PRN (19:00)
[2017-09-17] MEDS: CeleBREX 200 MG CAP PO SCH (20:28)
[2017-09-17] MEDS: ASPIRIN 81 MG ECTAB PO SCH (20:28)
[2017-09-17] MEDS: DOCUSATE SODIUM 100 MG CAP PO SCH (20:28)
[2017-09-17] MEDS: ACETAMINOPHEN 500 MG TAB PO SCH (20:59)
[2017-09-17] MEDS ORDERED: CETIRIZINE HCL 10 MG TAB PO SCH (21:00)
[2017-09-17] MEDS ORDERED: SIMVASTATIN 40 MG TAB PO SCH (21:00)
[2017-09-17] MEDS ORDERED: MONTELUKAST SOD 10 MG TAB PO SCH (21:00)
[2017-09-17] MEDS ORDERED: SENNA 8.6 MG TAB PO SCH (21:00)
[2017-09-18] MEDS: D5W AND 1/2NSS + 20MEQ KCL 1,000 ML IV SCH ×2 (00:12→00:28)
[2017-09-18] MEDS: CHECK SCOPOLAMINE PATCH PLACEMENT SCH ×2 (00:12→07:33)
[2017-09-18 03:05] VITALS: BP 157/68; PULSE 66; TEMP 36.6; O2SAT 93
[2017-09-18] MEDS: OXYCODONE HCL IR 5 MG TAB (IMMEDIATE RELEASE) PO PRN ×2 (03:17→11:08)
[2017-09-18 05:38] LABS: HEMATOCRIT 32.2 % (37-47); HEMOGLOBIN 10.4 g/dL (12.0-16.0); MEAN CELL VOLUME 89.7 fL (80-100); MEAN CORPUSCULAR HGB CONC 32.3 g/dl (32-36); MEAN PLATELET VOLUME 10.6 fL (7.4-10.4); PLATELET COUNT 174 K/uL (130-400); RED CELL DISTRIBUTION WIDTH CV 13.5 % (11.5-14.5); RED CELL DISTRIBUTION WIDTH SD 44.5 fL (36.4-46.3); WHITE BLOOD COUNT 13.03 K/uL (4.8-10.8)
[2017-09-18 06:06] LABS: IG# 0.03 K/uL (0.00-0.02); LYMPH ABS # 0.78 K/uL (1.2-3.4); MONO % 4.6 %; NEUT % 89.2 %; NEUT ABS # 11.62 K/uL (1.4-6.5)
[2017-09-18] MEDS: ACETAMINOPHEN 500 MG TAB PO SCH (06:06)
[2017-09-18 06:10] LABS: CALCIUM 8.4 mg/dl (8.5-10.1); CREATININE 1.04 mg/dl (0.60-1.20); POTASSIUM 4.5 mmol/L (3.5-5.1)
[2017-09-18 07:10] VITALS: BP 165/69; PULSE 53; TEMP 36.5; O2SAT 94
[2017-09-18] MEDS ORDERED: DEXAMETHASONE INJ 10 MG in SYRINGE 0 ML IV ONE (07:30)
[2017-09-18] MEDS ORDERED: PANTOprazole SOD 40 MG TAB PO SCH (09:00)
[2017-09-18] MEDS ORDERED: FLUTICASONE PROPIONATE NA SPR 16 GM BTL NAE SCH (09:00)
[2017-09-18] MEDS ORDERED: METOPROLOL SUCC 50MG EXT REL TAB PO SCH (09:00)
[2017-09-18] MEDS ORDERED: ESTRADIOL 1 MG TAB PO SCH (09:00)
[2017-09-18] MEDS ORDERED: MULTIVITAMIN TAB PO SCH (09:00)
[2017-09-18] MEDS ORDERED: DILTIAZEM HCL 120 MG EXT REL CAP PO SCH (09:00)
[2017-09-18] MEDS ORDERED: FLUTICASONE/SALMETEROL 250/50 (ADVAIR) 14 PUFF/1 INHALER INH SCH (09:00)
[2017-09-18 09:15] VITALS: PULSE 66
[2017-09-18] MEDS: DOCUSATE SODIUM 100 MG CAP PO SCH (09:21)
[2017-09-18] MEDS: ASPIRIN 81 MG ECTAB PO SCH (09:21)
[2017-09-18] MEDS: CeleBREX 200 MG CAP PO SCH (09:21)
[2017-09-18] MEDS ORDERED: NURSING VERBAL MED ORDER ONE (10:30)
[2017-09-18 10:50] VITALS: BP 156/70; PULSE 53; O2SAT 92
--- NOTE | 2017-09-18 10:54 | Orthopedic Progress Note ---
Orthopedic Progress Note Date of Service Sep 18, 2017. Subjective Post OP Day: 1 Reports: feeling well, pain controlled w PO medications, Denies: complaints, chest pain, SOB, nausea / vomiting, light headedness, calf pain Objective calves soft nontender, N/V intact, capillary refill less than 2 sec., dressing C /D/I, A&O x3, toes mobile Silverlon in place. No distal edema. Date Time Temp Pulse Resp B/P (MAP) Pulse Ox O2 Delivery O2 Flow Rate FiO2 09/18/17 07:45 Room Air 09/18/17 07:10 36.5 53 16 165/69 (101) 94 Room Air 09/18/17 03:05 36.6 66 17 157/68 (97) 93 Room Air 09/18/17 00:15 Room Air 09/17/17 22:58 36.5 64 16 127/58 (81) 93 Room Air 09/17/17 19:23 36.4 56 18 132/60 (84) 92 Room Air 09/17/17 17:19 36.6 52 18 126/69 (88) 92 Room Air 09/17/17 16:22 36.3 59 16 137/71 (93) 92 Room Air 09/17/17 15:22 36.3 54 16 137/64 (88) 95 Nasal Cannula 2.5 09/17/17 15:14 Nasal Cannula 2.0 09/17/17 14:44 55 16 143/71 (95) 95 09/17/17 14:17 93 Nasal Cannula 2.0 09/17/17 14:15 93 Nasal Cannula 2.0 09/17/17 14:12 36.3 54 16 133/50 (77) 93 2.0 09/17/17 14:00 51 25 09/17/17 14:00 51 25 94 09/17/17 13:57 115/62 09/17/17 13:55 51 16 94 09/17/17 13:55 51 16 09/17/17 13:54 51 14 94 09/17/17 13:54 53 14 09/17/17 13:52 130/57 09/17/17 13:49 52 15 94 09/17/17 13:49 52 15 09/17/17 13:47 122/63 09/17/17 13:44 53 22 09/17/17 13:44 53 22 94 18 13:42 132/57 718 13:39 58 15 95 18 13:39 52 15 18 13:37 133/55 18 13:34 52 13 94 18 13:34 53 13 18 13:31 125/62 09/17/18 13:29 57 22 18 13:29 60 22 94 18 13:27 125/49 18 13:24 50 13 18 13:24 49 13 94 18 13:21 124/76 18 13:19 57 14 93 09/17/17 13:19 50 14 09/17/17 13:16 117/70 09/17/17 13:14 51 14 09/17/17 13:14 51 14 94 18 13:12 117/70 09/17/17 13:09 51 15 09/17/17 13:09 51 15 94 09/17/17 13:08 36.8 63 16 125/62 (94) 95 Nasal Cannula 2 09/17/17 13:07 129/64 09/17/17 13:04 55 16 94 09/17/17 13:04 52 16 09/17/17 13:03 49 14 09/17/17 13:03 49 14 129/56 95 18 12:58 49 15 18 12:58 49 15 95 18 12:57 131/55 18 12:57 131/55 18 12:54 66 17 97 18 12:54 66 17 97 18 12:54 55 17 18 12:54 55 17 18 12:53 132/61 18 12:53 132/61 18 12:49 50 20 96 718 12:49 51 20 7/18 12:49 51 20 18 12:49 50 20 96 18 12:47 112/50 718 12:47 112/50 18 12:44 50 15 18 12:44 50 15 718 12:44 50 15 96 09/17/17 12:44 50 15 96 09/17/17 12:43 49 12 96 09/17/17 12:43 49 12 09/17/17 12:41 109/53 09/17/17 12:40 105/54 09/17/17 12:35 49 16 106/61 (74) 95 Oxymask 10 09/17/17 12:25 56 12 113/52 (75) 97 Oxymask 10 09/17/17 12:18 36.4 48 16 110/55 (73) 97 Oxymask 10 Laboratory Results 24 Hours: Test 09/18/17 05:21 White Blood Count 13.03 K/uL Red Blood Count 3.59 M/uL Hemoglobin 10.4 g/dL Hematocrit 32.2 % Mean Corpuscular Volume 89.7 fL Mean Corpuscular Hemoglobin 29.0 pg Mean Corpuscular Hemoglobin Concent 32.3 g/dl Platelet Count 174 K/uL Mean Platelet Volume 10.6 fL Neutrophils (%) (Auto) 89.2 % Lymphocytes (%) (Auto) 6.0 % Monocytes (%) (Auto) 4.6 % Eosinophils (%) (Auto) 0.0 % Basophils (%) (Auto) 0.0 % Neutrophils # (Auto) 11.62 K/uL Lymphocytes # (Auto) 0.78 K/uL Monocytes # (Auto) 0.60 K/uL Eosinophils # (Auto) 0.00 K/uL Basophils # (Auto) 0.00 K/uL Assessment & Plan Assessment: POD 1 - Right Total Hip Replacement Plan: PT/OT Continue Regular diet ASA for DVT prophylaxis. OOB, PWB RLE with walker assistance Posterior hip precautions. Stable for discharge home today with home health. Follow up in 2 weeks as scheduled. Discharge Planning Discharge Planning: home with home health Pain Management: Oxy IR DVT Prophylaxis: TEDs
[2017-09-18 11:25] VITALS: BP 142/59; PULSE 51; TEMP 36.5; O2SAT 92
[2017-09-18 11:26] VITALS: BP 165/69; PULSE 66; TEMP 36.5; O2SAT 94
--- NOTE | 2017-09-18 11:53 | [facility] Operative Report ---
Operative Report Operative Date Sep 18, 2017. Pre-Operative Diagnosis Right hip arthritis Post-Operative Diagnosis Right hip arthritis Procedure(s) Performed Right Total Hip Arthroplasty Surgeon aNtasha Sailor Surgeon(s) Ashok Soria MD and Iva Blevins PA-C Estimated Blood Loss 200 cc Findings Right hip arthritis Fluids 1700 cc crystalloid Specimens Femoral head Complication(s) None Disposition Recovery Room / PACU Indications Right hip pain. Impaired fucntion and mobility. Failed conservative treatment. See Dr Kaur note for further details. I assisted in surgery including but not limited to instrument handling, wound closure. Description of Procedure See Dr Natasha watkins for details I attest to the content of the Intraoperative Record and any orders documented therein. Any exceptions are noted below.
--- NOTE | 2017-09-18 20:21 | DISCHARGE SUMMARY ---
ADMISSION DIAGNOSIS: Right hip osteoarthritis. DISCHARGE DIAGNOSIS: Right hip osteoarthritis, status post right total hip replacement, 09/17/2017. SERVICE: Orthopedics, Dr. Kaur CONSULTS: None. PROCEDURE: Right total hip arthroplasty, 09/17/2017. HISTORY AND PHYSICAL EXAM: 82-year-old female with underlying history of stage III chronic kidney disease, HTN, hyperlipidemia, GERD, bronchitis, asthma, hiatal hernia. Has had chronic right hip pain. It has been refractory to conservative management. Underwent right total hip replacement by Dr. Kaur on 09/17/2017 secondary to underlying end-stage DJD, osteoarthritis. Physical exam findings were consistent with arthritis. She was aware of potential risks, complications, and outcomes of the procedure. HOSPITAL COURSE: On 09/17/2017, the patient was admitted from ambulatory for a right total hip replacement. She was given a spinal anesthetic, was provided with perioperative antibiotics and tranexamic acid was administered. The surgery was performed by Dr. Kaur without complication. Admitted for an overnight hospital stay for pain control and monitoring as well as to work with physical and occupational physical therapy. The patient did participate in occupational and physical therapy without incident. She tolerated p.o. pain medication. She was tolerating a regular diet. Using a walker for assistance and following standard hip precautions. No issues with her wound, which was covered with Silverlon dressing. Post-op day 1 labs were reviewed and WNL. DISCHARGE CONDITION: Good. DISPOSITION: The patient will be discharged to home with home health physical therapy. MEDICATIONS: Other than her home medications. Additional medications upon discharge include extra-strength Tylenol up to 4000 mg daily for pain, OxyIR 5 mg, dispensed 30 tablets 1-2 p.o. q. 4-6 hours p.r.n. extreme pain, diclofenac sodium 75 mg 1 tablet p.o. b.i.d. with food x30 days, aspirin 81 mg 1 tablet p.o. b.i.d. with food x30 days to prevent blood clots. INSTRUCTIONS: The patient is aware of standard hip precautions. She will start with the use of a walker and progress to a cane as she feels comfortable. She will continue with regular diet. She will keep the Silverlon dressing on her wound until followup with Dr. Kaur. She will follow physical therapy exercise program and start home health. She was provided with a detailed post-op discharge instructions. The patient has a scheduled follow up with Dr. Kaur in the office. She was advised to call the office if she has any problems, questions, or concerns. MARGE
== END 2017-09-18 12:21 | disposition home health service (06) | DRG 470 ==
LOC: C.ACU 06:30 → C.3E 07:05 → ENRESERV 13:18
PROVIDERS: ADMIT Orthopaedic Surgery; ATTEND Orthopaedic Surgery
PROC: 0SR90JA Replacement of Right Hip Joint with Synthetic Substitute, Uncemented, Open Approach (ICD-10-PCS; principal; 2017-09-17 09:30)
DX: M16.11 Unilateral primary osteoarthritis, right hip (principal); I12.9 Hypertensive chronic kidney disease with stage 1 through stage 4 chronic kidney disease, or unspecified chronic kidney disease; N18.3 Chronic kidney disease, stage 3 (moderate); E78.5 Hyperlipidemia, unspecified; K21.9 Gastro-esophageal reflux disease without esophagitis; J45.909 Unspecified asthma, uncomplicated; E66.9 Obesity, unspecified; Z79.82 Long term (current) use of aspirin; Z79.899 Other long term (current) drug therapy

== ENCOUNTER → 2017-09-29 | Outpatient (CLI) | payer OTHER ==
[~2017-09-29] MED LIST changes: +ACET-1256 PO; -ACETAMINOPHEN 500 MG TAB PO SCH; -CEFAZOLIN 2000MG IV PUSH 15 ML IV SCH; -CHECK SCOPOLAMINE PATCH PLACEMENT SCH; -CeleBREX 200 MG CAP PO SCH; -DEXAMETHASONE 4 MG TAB PO SCH; -FAMOTIDINE 20 MG TAB PO SCH; -LACTATED RINGER'S 1000ML 1,000 ML IV SCH; -LACTATED RINGER'S 1000ML 500 ML IV SCH; -LACTATED RINGER'S 1000ML IV SCH; -ROPIVACAINE 5MG/ML 30 ML 150 MG, BUPIVACAINE 0.5% MPF INJ 30 ML, EpINEphrine HCL INJ 0.... INFIL SCH; +RXC5 PO; -SCOPOLAMINE 1.5 MG TDSY TD SCH; -TRAMADOL HCL 50 MG TAB PO SCH; -TRANEXAMIC ACID INJ 1,000 MG x 2 Bags IV SCH
== END ==
LOC: C.RDSM 11:10
PROVIDERS: ATTEND Orthopaedic Surgery
DX: M25.561 Pain in right knee (principal)

== ENCOUNTER 2022-06-13 07:02 | Observation (INO) ==
--- NOTE | 2022-06-03 14:58 | PAT Medication Instructions ---
Medication Instructions Date of Service June 03, 2022 Home Medications cetirizine 10 mg tablet (Zyrtec) 10 mg PO QAM dicyclomine 10 mg capsule 10 mg PO BID furosemide 40 mg tablet 40 mg PO BID metoprolol tartrate 25 mg tablet 25 mg PO BID montelukast 10 mg tablet (Singulair) 10 mg PO HS prednisone 5 mg tablet 5 mg PO DAILY PRN ARTHRITIS vit no.133-ferrous fumarate 28 mg-folic acid 800 mcg tablet () 1 tab PO QAM rabeprazole 20 mg tablet,delayed release (AcipHex) 20 mg PO QAM acetaminophen 500 mg tablet (Acetaminophen Extra Strength) 1,000 mg PO HS acetaminophen 650 mg tablet,extended release 1,300 mg PO QAM albuterol sulfate 2.5 mg/3 mL (0.083 %) solution for nebulization 2.5 mg inhalation Q4H PRN Shortness Of Breath albuterol sulfate 90 mcg/actuation aerosol inhaler 1 inh inhalation QID PRN Shortness Of Breath alendronate 70 mg tablet 70 mg PO Q7D apixaban 5 mg tablet 5 mg PO BID atorvastatin 40 mg tablet 40 mg PO HS Continue as directed alendronate 70 mg tablet 70 mg PO Q7D (just do not take morning of surgery) ASK your prescriber and surgeon apixaban 5 mg tablet 5 mg PO BID (in order to get spinal anesthesia- will need to hold Eliquis/apixaban at least 72 hours prior to surgery) DO NOT take the morning of surgery cetirizine 10 mg tablet (Zyrtec) 10 mg PO QAM dicyclomine 10 mg capsule 10 mg PO BID furosemide 40 mg tablet 40 mg PO BID vit no.133-ferrous fumarate 28 mg-folic acid 800 mcg tablet () 1 tab PO QAM Take morning of surgery With a small sip of water, OTHERWISE NOTHING TO EAT OR DRINK AFTER MIDNIGHT: metoprolol tartrate 25 mg tablet 25 mg PO BID prednisone 5 mg tablet 5 mg PO DAILY PRN ARTHRITIS (if needed) rabeprazole 20 mg tablet,delayed release (AcipHex) 20 mg PO QAM acetaminophen 650 mg tablet,extended release 1,300 mg PO QAM albuterol sulfate 2.5 mg/3 mL (0.083 %) solution for nebulization 2.5 mg inhalation Q4H PRN Shortness Of Breath (if needed) albuterol sulfate 90 mcg/actuation aerosol inhaler 1 inh inhalation QID PRN Shortness Of Breath(use if needed; please bring with you to hospital day of surgery if possible) Take evening before surgery dicyclomine 10 mg capsule 10 mg PO BID furosemide 40 mg tablet 40 mg PO BID metoprolol tartrate 25 mg tablet 25 mg PO BID montelukast 10 mg tablet (Singulair) 10 mg PO HS prednisone 5 mg tablet 5 mg PO DAILY PRN ARTHRITIS (if needed) acetaminophen 500 mg tablet (Acetaminophen Extra Strength) 1,000 mg PO HS albuterol sulfate 2.5 mg/3 mL (0.083 %) solution for nebulization 2.5 mg inhalation Q4H PRN Shortness Of Breath (if needed) albuterol sulfate 90 mcg/actuation aerosol inhaler 1 inh inhalation QID PRN Shortness Of Breath (if needed) atorvastatin 40 mg tablet 40 mg PO HS Other Notes If you have any questions please call us at [phone] or [phone] or [phone] or [phone]
--- NOTE | 2022-06-05 12:54 | Anesthesiology Consultation ---
Date of Service June 05, 2022 Assessment & Plan (1) Encounter for pre-operative examination: - COVID screening: Per assessment on 06/05: No known COVID-19 positive contacts or current COVID-19 related symptoms. Travel screen negative. Patient vaccinated. At surgeon discretion if preop Covid testing being done. - S/P Right DEB (09/16/17): SAB at L3/4 (x1 attempt) at [facility] - Eliquis/apixaban instructions: patient made aware that in order for spinal anesthesia, Eliquis/apixaban needs to be held 72 hours/3 days prior to surgery. Patient voiced understanding/will check if okay with prescriber. - Outpatient joint assessment: Pt currently scheduled for inpatient pathway. If surgeon requests review for outpatient joint pathway, patient is not recommended candidate for outpatient joint program from anesthesia standpoint. - Cardiology visit (01/16/22): "Paroxysmal atrial fibrillation, new diagnosis in July 2021, CHADs VASc 5... Chronic diastolic CHF, NYHA class I, ejection fraction 50-54%.. Crohn's disease, well controlled on Entyvio.. Rectal vesicular fistula, s/p surgical repair with bowel resection.. heart rate and blood pressure well controlled today.. symptomatically she is significantly better.. she was asymptomatic with onset of per paroxysmal atrial fibrillation.. we will schedule her to come back in next week and have a Zio monitor placed per her preference for evaluation of her atrial fibrillation burden.. tolerating therapeutic anticoagulation without any difficulty.. continue metoprolol, apixaban, simvastatin.. no longer having episodes of dizziness since her adjustment of metoprolol at her last visit.. Educated patient on caution with change in positions to minimize symptomatic orthostatic hypotension" personnel monitor completed 01/2022- per patient, cardio reviewed and advised she continue same regimen. - Pulmonary visit (04/09/22): "Patient is breathing well, no resp exacerbations since last visit. Will continue on current tx regimen.. Spirogram read and reviewed by me via pacs which shows normal ventilatory pattern with no significant bronchodilator response. No need for further spirogram.. Chronic diastolic (congestive) heart failure (HCC).. Followed by cardiology, euvolemic.. Pulmonary hypertension.. Group 2.. Large hiatal hernia seen on imaging in the past. Reflux precautions." Recommendations for patient to continue same regimen and advised on reflux precautions. F/U 1 year. Chart Review Chart Review: Acceptable Risk for Surgery and Patient seen in Pre Admission Testing Teaching & Discussion Pre-Anesthesia Teaching/Discussion Notes: Instructed NPO after midnight before surgery,except medications with 15 cc of water. Medication instructions provided according to the PAT guidelines. History Surgery Operation Date: 06/13/22 07:00 Proposed Procedures p Left Total Knee Arthroplasty - Jonatan Kaur MD Height/Weight Height: 5 ft Weight: 68.8 kg Allergies Allergy/AdvReac Type Severity Reaction Status Date / Time ampicillin Allergy Intermediate RASH Verified 06/03/22 10:44 cefazolin Allergy Intermediate HIVES Verified 06/03/22 10:44 clindamycin Allergy Intermediate RASH Verified 06/03/22 10:44 oxybutynin Allergy Intermediate RASH Verified 06/03/22 10:44 cephalexin AdvReac Intermediate PALPITATION Verified 06/03/22 10:44 S morphine AdvReac Intermediate HALUCINATIO Verified 06/03/22 10:44 N Medications Home Medications Medication Instructions Recorded Confirmed Last Taken cetirizine 10 mg tablet (Zyrtec) 10 mg PO QAM 08/14/21 06/03/22 08/14/21 dicyclomine 10 mg capsule 10 mg PO BID 08/14/21 06/03/22 08/14/21 08:00 furosemide 40 mg tablet 40 mg PO BID 08/14/21 06/03/22 08/14/21 08:00 metoprolol tartrate 25 mg tablet 25 mg PO BID 08/14/21 06/03/22 08/14/21 08:00 montelukast 10 mg tablet 10 mg PO HS 08/14/21 06/03/22 08/14/21 (Singulair) prednisone 5 mg tablet 5 mg PO DAILY PRN ARTHRITIS 08/14/21 06/03/22 08/14/21 vit no.133-ferrous 1 tab PO QAM 08/14/21 06/03/22 08/14/21 fumarate 28 mg-folic acid 800 mcg tablet () rabeprazole 20 mg tablet,delayed 20 mg PO QAM 08/14/21 06/03/22 08/14/21 release (AcipHex) acetaminophen 500 mg tablet 1,000 mg PO HS 06/03/22 06/03/22 Unknown (Acetaminophen Extra Strength) acetaminophen 650 mg 1,300 mg PO QAM 06/03/22 06/03/22 Unknown tablet,extended release albuterol sulfate 2.5 mg/3 mL 2.5 mg inhalation Q4H PRN 06/03/22 06/03/22 Unknown (0.083 %) solution for nebulization Shortness Of Breath albuterol sulfate 90 mcg/actuation 1 inh inhalation QID PRN Shortness 06/03/22 06/03/22 Unknown aerosol inhaler Of Breath alendronate 70 mg tablet 70 mg PO Q7D 06/03/22 06/03/22 Unknown apixaban 5 mg tablet 5 mg PO BID 06/03/22 06/03/22 Unknown atorvastatin 40 mg tablet 40 mg PO HS 06/03/22 06/03/22 Unknown Past Medical History Medical History Asthma Stable Atrial fibrillation Chronic diastolic heart failure Chronic kidney disease Stage III Crohn's disease Stable, no recent issues Hyperlipidemia Hypertension Large hiatal hernia Poor historian Pulmonary HTN Exercise / Class Metabolic Activity III < 4 Walking/Shop/Light housework Past Surgical History Surgical History H/O vein stripping Remote hx (years ago)- due to LLE phlebitis History of colectomy 12" colon resection (10/2021) History of esophagogastroduodenoscopy (EGD) History of total right hip arthroplasty Right DEB (09/16/17): SAB at L3/4 (x1 attempt) at [facility] Hx of bilateral cataract extraction Hx of colonoscopy Hx of total hysterectomy with removal of both tubes and ovaries Nausea and vomiting after administration of anesthetic agent Past Anesthesia History No Hx of Anesthesia Complications (except PONV) and No Family Hx of Anesthesia Complications History of PONV No Hx of Motion Sickness and History of PONV Social History Smoking Status: Never smoker Do You Dip or Chew Tobacco: No Hx Alcohol Use: No Hx Substance Use: No substance use type: does not use Review of Systems Patient denies chest pain, shortness of breath, fever, chills, cough, wheezing, palpitations. Physical Exam Vital Signs VITALS BP 140/68 P 54 TEMP 98.1 SP02 94%RA RESP 18 PHYSICAL Full cervical extension range of motion. Full TMJ range of motion. TMD 3.5 finger breaths Mallampati Score 1 Dentition: upper/lower partial Lungs: clear throughout to auscultation Cardiac: regular rate and rhythm, I-II/ systolic murmur Spine: normal Carotid arteries: negative bruit Extremities: no LE edema Lab Results Anesthesia Preop Results Results Anesthesia Widget: WBC 9.28 K/ul (4.8-10.8) 06/05/22 Hgb 12.6 g/dl (12.0-16.0) 06/05/22 Hct 39.2 % (37.0-47.0) 06/05/22 Plt 229 K/uL (130-400) 06/05/22 Na 139 mmol/L (136-145) 06/05/22 K 4.5 mmol/L (3.5-5.1) 06/05/22 Cl 101 mmol/L (98-107) 06/05/22 CO2 31 mmol/L (21-32) 06/05/22 BUN 35 mg/dl (6-23) H 06/05/22 Creat 1.23 mg/dl (0.6-1.2) H 06/05/22 Glucose Level 106 mg/dl (70-99(Fasting)) H 06/05/22 PT 11.2 Seconds (9.0-12.0) 06/05/22 PTT 29.5 Seconds (21.0-31.0) 06/05/22 INR 1.1 (0.9-1.1) 06/05/22 HA1c 5.8 % (4.5-5.6) H 06/05/22 Urine Color Dark Yellow 06/05/22 Urine Appearance Clear (Clear) 06/05/22 Urine pH 6.0 (4.5-7.5) 06/05/22 Urine Specific Elaine 1.024 (1.000-1.030) 06/05/22 Urine Protein Negative (Negative) 06/05/22 Urine Glucose (UA) Negative (Negative) 06/05/22 Urine Ketones Negative (Negative) 06/05/22 Urine Blood Negative (Negative) 06/05/22 Urine Nitrite Negative (Negative) 06/05/22 Urine Bilirubin Negative (Negative) 06/05/22 Urine Urobilinogen Negative (Negative) 06/05/22 Urine Leukocyte Esterase Negative (Negative) 06/05/22 Blood Type A Positive 06/05/22 Antibody Screen NEGATIVE 06/05/22 Testing Electrocardiogram Date: 08/14/21 SB at 58bpm. Moderate voltage criteria for LVH, may be normal variant. *Poor data quality. no significant change compared to 08/26/2017 per cell tester comparison. Echocardiogram Date: 08/02/21 LVEF 50-54%. Grade 1 diastolic dysfunction. Mild AR. Mild TR. Estimated PASP 49 mmHg. LV wall motion is normal. Other Testing 14 day personnel monitor (01/28/22) Predominant rhythm sinus with average heart rate 60 bpm. Slowest HR 38 bpm (consistent with sinus bradycardia). Fastest heart rate 164 bpm (consistent with brief PAT). Occasional APC with occasional runs of SVTunderlying mechanism probably PAT. Rare VPC. No runs of NSVT. COVID-19 Risk Screen Screening Information COVID-19 Screen Date: 06/05/22 Exposure 21 Days Family/Household +COVID Last 21 Days: No Exposure 10 Days Any COVID Exposure Last 10 Days: No Symptoms Last 10 Days Experienced COVID Sx Last 10 Days: No + COVID 0-90 Days COVID + in Last 0-90 Days: No
--- NOTE | 2022-06-05 13:45 | History & Physical Report ---
Date of Service June 05, 2022 Assessment & Plan (1) Osteoarthritis of left knee: Plan: PRE-OP Diagnosis: Left knee osteoarthritis Planned Procedure: Left total knee arthroplasty Plan: Patient is scheduled to undergo this procedure at the [facility] with May with Dr. Kaur. Risks and complications of the procedure such as: Infection, bleeding, pain, scarring, nerve blood vessel damage, weakness, wound problems, stiffness, incomplete relief of symptoms, hardware failure, hardware loosening, wear, fracture, tendon or ligament injury, blood clots, embolism, cardiac, stroke and were explained to the patient at her visit today and informed consent for the procedure was obtained. Patient also understands risks of proceeding with surgical intervention during the COVID-19 pandemic. Currently she is asymptomatic and states that she has not been in contact with anyone positive for the virus recently. We will need to obtain preoperative medical clearance from the patient's primary care provider Dr. Serrano. She has an appointment with him next Friday the . Patient is scheduled to meet with anesthesia at the hospital later this afternoon. While there she will obtain a CBC with differential, complete metabolic panel, PT/INR, PTT, blood type and screen, urinalysis, urine culture and sensitivity, EKG. During today's visit we reviewed the total knee packet. I provided the patient with paperwork to obtain obtaining a handicap placard for her vehicle. I provided her with information about lectures offered by [facility] in regards to joint replacement surgery. Patient states that she has a walker, shower chair and raised toilet seat from her previous total hip surgery. We discussed discharge planning from the hospital. Patient states she will most likely do in-home phys ical therapy for the first 2 weeks before transitioning to outpatient physical therapy. I advised the patient that she will be provided with a prescription for narcotic pain medication for postoperative pain control. We will have her back on [employer] for blood clot prevention. Patient verbalized understanding of all information provided during today's visit. She thanks for the care that she received. If she has questions or concerns prior to her surgery, she will contact clinic. Patient be scheduled for 2-week postoperative follow-up visit with Myra Cheung PA-C on June 26 at 2:15 PM. This chart was completed utilizing dragon dictation voice recognition software. Grammatical errors, random word insertions, pronoun errors, and in complete sentences are an occasional consequence of the system. Any questions or concerns about the content, text, or information contained within the body of this dictation should be addressed directly to the physician for clarification. History of Present Illness Chief Complaint: Chief Complaint: Left knee pain Primary Care Provider: Kamlesh Serrano DO History of Present Illness (including history relevant to procedure): This 86-year-old female presents to the clinic today with her daughter for her preoperative history and physical. Patient complains of about a 7-year history of left knee pain. She states that she met with an orthopedist near [facility] shortly before moving to [place] who recommended total knee arthroplasty. She states that now she is at the point where it is starting to affect her ability to walk and causing her to fall . Patient states that she has had about 5 falls in the past month. Patient localizes pain over the medial and lateral joint space with intermittent radiation of the pain down her leg. She has elected to proceed with surgical intervention. Review Of Systems: Is performed and is unremarkable except for those things stated in the HPI and past medical history. Past Medical History: Problems: Osteoarthritis of right hip Preop examination Asthma High cholesterol Kidney disease Hypertension GERD Hiatal hernia Procedure History Procedure Procedure Date Comments Non total hysterectomy Right total hip arthroplasty Right total knee arthroplasty Fistula excision Varicose vein stripping Bilateral cataract removal Allergies and Sensitivities: ampicillin(hives) clindamycin(hives) Ditropan(increased heart rate) morphine(hallucinate) Keflex(hives) Current Home Meds: (Last Updated 06/05 11:29) RABEprazole (AcipHex 20 mg oral delayed release tablet) 20 mg PO Daily alendronate (alendronate 70 mg oral tablet) 70 mg PO q7days apixaban (Eliquis 5 mg oral tablet) 5 mg PO bid atorvastatin (atorvastatin 40 mg oral tablet) 40 mg PO Daily dicyclomine (Bentyl 10 mg oral capsule) 10 mg PO qid fluticasone-salmeterol (Wixela Inhub 250 mcg-50 mcg inhalation powder) furosemide (Lasix 40 mg oral tablet) 40 mg PO Daily metoprolol (Metoprolol Tartrate 25 mg oral tablet) montelukast (montelukast 10 mg oral tablet) 10 mg PO qPM predniSONE (predniSONE 5 mg oral tablet) 5 mg PO Daily unknown medication vitamin Allergies Allergy/AdvReac Type Severity Reaction Status Date / Time ampicillin Allergy Intermediate RASH Verified 06/03/22 10:44 cefazolin Allergy Intermediate HIVES Verified 06/03/22 10:44 clindamycin Allergy Intermediate RASH Verified 06/03/22 10:44 oxybutynin Allergy Intermediate RASH Verified 06/03/22 10:44 cephalexin AdvReac Intermediate PALPITATION Verified 06/03/22 10:44 S morphine AdvReac Intermediate HALUCINATIO Verified 06/03/22 10:44 N Home Medications Medication Instructions Recorded Confirmed Type cetirizine 10 mg tablet (Zyrtec) 10 mg PO QAM 08/14/21 06/03/22 History dicyclomine 10 mg capsule 10 mg PO BID 08/14/21 06/03/22 History furosemide 40 mg tablet 40 mg PO BID 08/14/21 06/03/22 History metoprolol tartrate 25 mg tablet 25 mg PO BID 08/14/21 06/03/22 History montelukast 10 mg tablet 10 mg PO HS 08/14/21 06/03/22 History (Singulair) prednisone 5 mg tablet 5 mg PO DAILY PRN ARTHRITIS 08/14/21 06/03/22 History vit no.133-ferrous 1 tab PO QAM 08/14/21 06/03/22 History fumarate 28 mg-folic acid 800 mcg tablet () rabeprazole 20 mg tablet,delayed 20 mg PO QAM 08/14/21 06/03/22 History release (AcipHex) acetaminophen 500 mg tablet 1,000 mg PO HS 06/03/22 06/03/22 History (Acetaminophen Extra Strength) acetaminophen 650 mg 1,300 mg PO QAM 06/03/22 06/03/22 History tablet,extended release albuterol sulfate 2.5 mg/3 mL 2.5 mg inhalation Q4H PRN 06/03/22 06/03/22 History (0.083 %) solution for nebulization Shortness Of Breath albuterol sulfate 90 mcg/actuation 1 inh inhalation QID PRN Shortness 06/03/22 06/03/22 History aerosol inhaler Of Breath alendronate 70 mg tablet 70 mg PO Q7D 06/03/22 06/03/22 History apixaban 5 mg tablet 5 mg PO BID 06/03/22 06/03/22 History atorvastatin 40 mg tablet 40 mg PO HS 06/03/22 06/03/22 History Past Med/Surg History Medical History Asthma Stable Atrial fibrillation Chronic kidney disease Stage III Crohn's disease Stable, no recent issues Hyperlipidemia Hypertension Poor historian Surgical History H/O vein stripping years ago, due to phlebitis in left leg History of colectomy 12" COLON REMOVED 10/2021 History of esophagogastroduodenoscopy (EGD) History of total right hip arthroplasty Right DEB (09/16/17): SAB at L3/4 (x1 attempt) at [facility] Hx of bilateral cataract extraction Hx of colonoscopy Hx of total hysterectomy with removal of both tubes and ovaries Nausea and vomiting after administration of anesthetic agent Social History Smoking Status: Never smoker Second Hand Exposure: Yes (HX- A CHILD); Hx Alcohol Use: No Hx Substance Use: No Preferred Language: Belarusian Communication Ability: Effective Strike Warfare/Missile Systems Officer Required: No Beliefs That Will Affect Care: None Current Living Situation: Alone Feels Safe at Home: Yes Assistive Devices: Cane, Denture - Upper, Denture - Lower, Glasses and Walker Physical Exam Physical Exam: Physical Exam: (relevant to the procedure, including heart and lung evaluation) General: Alert and oriented x3 with proper grooming and hygiene Eyes: Pupils are equal and reactive to light with accommodation. Extraocular movements are intact Throat: Posterior oropharynx is clear with absence of edema, erythema or exudate. Dentition is appropriate Cardiac: Regular rate and rhythm with no murmurs or gallops appreciated Lungs: Clear to auscultation throughout with no wheezing, rales or rhonchi Abdomen: Nonobese, nondistended, nontender with NABS Extremities: Left knee; range of motion is from about 20 degrees of extension to 118 degrees of flexion. She experiences medial and lateral joint line tenderness when the knee is palpated in the flexed position. She has visible varus malalignment. Her patella is not mobile due to arthritic change within the patellofemoral joint. She has no laxity with varus or valgus stressing. AP drawer sign Trena test are negative. She is neurovascular intact in the left lower extremity but does walk with a slight antalgic gait. Neuro: Cranial nerves II through XII are intact with no motor or sensory deficit Skin: Clean appearance with no open skin areas or discharge Results & Data Diagnostic Findings Studies of Lab Results (relevant to the procedure): X-Ray imaging: Long leg alignment films and 4 views of the left knee obtained show valgus alignment. There is severe, almost [id number], lateral tibiofemoral osteoarthritis of the left knee. There is some mild bone loss posteriorly. Tricompartmental osteophyte noted.
[~2022-06-13 07:02] MED LIST changes: -ACET-1256 PO; +ACETAMINOPHEN 500 MG TAB PO SCH; -ADVIN25/60 INH; -ALBINS/ INH; -ASPI81TA28 PO; +BUPIVACAINE 0.25% PF 30 ML VIAL ONE; +BUPIVACAINE 0.5 % 5 MG/1 ML PF 10ML VIAL ONE; -CETI10TA84 PO; +CeleBREX 200 MG CAP PO SCH; +DEXAMETHASONE SOD INJ 4 MG/ML VIAL ONE; -DILT120C68 PO; +EPINEPHrine INJ 1 MG/ML AMP ONE; -ESTR1 PO; +FAMOTIDINE 20 MG TAB PO SCH; -FLUT0.15 NAE; +LR 15ML/HR IV SCH; +LR 60ML/HR IV SCH; -METO100T44 PO; -MONT1TAB3 PO; -RABE20TA5 PO; +ROPIVACAINE 0.5% HCL/PF 150 MG, BUPIVACAINE 0.75% MPF 20 ML, EPINEPHrine 0.15 MG, Ketor... INFIL SCH; -RXC5 PO; -SIMV40TA2 PO; +Scopolamine 1 MG TDSY TD SCH; -TRAM-10 PO; +TRANEXAMIC ACID 1,000 MG **IV Intra-op IV SCH; +TRANEXAMIC ACID 1,000 MG **IV Pre-op IV SCH; +VANCOMYCIN HCL 1,000 MG/270 ML BAG IV SCH; -VNTHFA/IN INH; +dexAMETHasone 4 MG TAB PO SCH
[2022-06-13] MEDS ORDERED: MIDAZOLAM HCL 1 MG/ML 2ML VIAL ONE (07:56)
[2022-06-13] MEDS ORDERED: fentaNYL citrate PF 100 MCG/2 ML VIAL ONE (07:56)
[2022-06-13] MEDS ORDERED: ATROPINE SULFATE 0.1 MG/ML 10ML SYR IV PRN (08:06)
[2022-06-13] MEDS ORDERED: ePHEDrine sulfate 50 MG/ML AMP IV PRN (08:06)
[2022-06-13] MEDS ORDERED: ONDANSETRON INJ 2 MG/ML 2 ML VIAL IV PRN ×2 (08:06→13:46)
[2022-06-13] MEDS ORDERED: fentaNYL citrate PF 100 MCG/2 ML VIAL IV PRN (08:06)
--- NOTE | 2022-06-13 10:11 | History & Physical Bridge Note ---
Date of Service June 13, 2022 History & Physical Bridge Note I have examined the patient, reviewed the History & Physical and in the interval since the performance of the History & Physical I have noted the following changes of clinical significance: no changes noted
[2022-06-13] MEDS ORDERED: ORTHO JOINT ANESTHETIC ONE (10:38)
[2022-06-13] MEDS ORDERED: PROPOFOL IV EMULSION 10 MG/ML 20 ML VIAL IV ONE (10:52)
[2022-06-13] MEDS ORDERED: ONDANSETRON INJ 2 MG/ML 2 ML VIAL ONE (10:58)
[2022-06-13] MEDS ORDERED: ePHEDrine sulfate 50 MG/ML AMP ONE (11:46)
--- NOTE | 2022-06-13 12:34 | Operative Report ---
Post Operative Report Pre & Post Diagnosis Operation Date: 06/13/22 09:20 Pre-Op Diagnosis: Left knee osteoarthritis Post-Op Diagnosis: Left knee osteoarthritis I identified the patient and participated in the time-out.: Yes Procedure Operation Date: 06/13/22 09:20 Actual Procedures p Left Total Knee Arthroplasty(Left) - Jonatan Kaur MD Surgeon Jonatan Kaur MD Central Lab Technician George Young DO and Myra Cheung PA-C Estimated Blood Loss 50 Findings Consistent with Post-Op Diagnosis Specimens Left knee bone and soft tissue contents Anesthesia Type Spinal MAC Complications none Disposition Disposition: Recovery Room Indications 86-year-old female with left knee osteoarthritis refractory to conservative management. X-rays demonstrate [id number] arthritis and slight valgus alignment. I had a long discussion with her about the risks and benefits of surgery, alternatives to surgery, and expected outcomes. After reviewing all these she elected to proceed with surgery. All questions were answered. Informed consent was signed. Description of Procedure Patient was identified in the preoperative holding area where the surgical site, left knee, was marked. Spinal anesthetic was placed by anesthesia. Patient was brought back to the operating room, placed on the operating room table, and IV sedation was administered. A bump was placed underneath the ipsilateral hip. All bony prominences were padded. Perioperative antibiotics and tranexamic acid were administered. Exam under anesthesia was performed. This demonstrated slight valgus alignment approximately 10 degrees. Range of motion was approximately 3 to 115 degrees. She was stable to varus and valgus at 30 degrees of knee flexion. The surgical site was prepped and draped in the normal sterile fashion. Prior to incision a multidisciplinary timeout was called. All in the room were in agreement. We began by exsanguinating the limb with an Esmarch bandage. Tourniquet was inflated to 250 mmHg. A 14 cm long incision was made over the anterior aspect of the knee. I dissected through the subcutaneous tissues to the level of the fascia. Full-thickness flaps were raised above the fascia. A median parapatellar arthrotomy was made. Half the fat pad was excised. A medial release was performed with Bovie electrocautery on the proximal tibia. Synovitis in the knee and suprapatellar pouch was removed. The patella was then everted and held with 2 towel clips. The thickness of the patella was measured at 24 mm. Patellar resection was performed. Caliper showed the patella thickness now to be 15 mm. A size 38 trial was placed and had a great fit. The 3 drill holes were placed then the trial button was placed. The patellar thickness was now 24 mm which I was very happy with. The patellar trial was then removed, and the knee was flexed up. Retractors were placed to protect the MCL and LCL. Osteophytes were removed from the femoral condyles and intercondylar notch. The ACL and PCL were excised. Intramedullary drill guide was drilled into the femur. Distal femoral cutting guide was placed set at 5 degrees of valgus to resect 10 mm off the distal femur. Distal femoral resection was made without difficulty. The tibia was then exposed. The lateral meniscus was sharply excised. The tibial cutting jig was positioned in line with the tibial shaft in the coronal plane and with 3 degrees of posterior slope in the sagittal plane to resect 9 mm off the less involved compartment. The jig was then pinned in position and the tibial cut was made. We then brought the knee into full extension. Lamina spreaders were placed. The medial meniscus was excised. The extension block was then placed for 5 mm thickness poly. This gave us full extension and excellent stability to varus and valgus stress. Next the extension block was removed, the knee was flexed up, collateral ligaments were protected, and the epicondylar axis and Whitesides line were marked out on the distal femoral cut. Femoral sizing guide was placed. External rotation was set at 3 degrees so that the posterior cut would be parallel with the epicondylar axis and perpendicular with Whitesides line. The patient sized to a size 5 femur. 2 pins were then placed through the jig into the distal femur. The jig was removed and the appropriately sized 4-in-1 cutting jig was placed over the pins, then fixated to the bone using threaded, headed pins. We confirmed that we would not notch the femur with our anterior cut. Our 4 cuts were then made. The cutting jig was removed. The flexion block was then placed with the knee held at 90 degrees. There was excellent stability to varus and valgus at 90 degrees with no gapping medially or laterally. Next the box cutting jig was placed on the distal femur. The box cut was made and the femoral trial was impacted into position. Lug holes were drilled in the distal femur. We then reexposed the tibia. The tibia was sized to a 4 for a fixed-bearing component. The tibial tray with a 5 mm thickness polyethylene liner was placed on the cut tibial surface and the knee was brought through a full range of motion. There was excellent stability to varus valgus stress throughout a full range of motion, which was approximately 0-125 degrees. Bovie electrocautery was used to juana the tibia at the site where the tibial tray rested in full extension. We then flexed up the knee, removed the polyethylene liner, and pinned the tibial tray into position to match the cautery juana. The intramedullary drill followed by the keel punch were used to prepare the tibia. Next the trial components were removed. I then injected the posterior capsule and periosteum with the periarticular injection cocktail. The bone cuts were then irrigated and dried while the cement was mixed on the back table. The femoral component was cemented on first. Excess cement was removed. A lap sponge was placed over the femoral component for protection, then the tibia was subluxated anteriorly. The all polyethylene tibial component was then cemented in place. Again excess cement was removed. The knee was brought into full extension and held there until the cement cured. The patella was cemented and clamped. Dilute Betadine solution was then allowed to soak in the knee while the cement cured. Once the cement was fully cured, the knee was irrigated out, the tourniquet was let down and meticulous hemostasis was ensured. The knee was brought through a full range of motion. I was were very happy with the patella tracking and the stability. We then began to close. Interrupted 0 Vicryl suture was used to repair the patellar retinaculum in [id number] fashion. The quadriceps and patellar tendons were run with #1 Vicryl. The deep dermal layer was closed with interrupted 2-0 Vicryl. Dermabond and Zipline was used for the skin, followed by a Silverlon dressing. A compressive Dev wrap was placed and the knee was placed into a knee immobilizer. Patient's sedation was lifted and was transferred to recovery room in stable condition. Summary of implants: Depuy Attune Posterior Stabilized Cemented Femur, size 5 left Attune All-polyethylene tibial component, posterior stabilized 5 mm thickness, size 4 Attune patella medialized dome, size 38 2 batches of simplex high viscosity bone cement Postoperative course: Patient will be admitted to the floor for pain control and monitoring. Weightbearing as tolerated with a walker with no knee range of motion for 48 hours. Aspirin for DVT prophylaxis. I attest to the content of the Intraoperative Record and any orders documented therein. Any exceptions are noted below.
--- NOTE | 2022-06-13 13:24 | XRay Report ---
TWO VIEWS LEFT KNEE CLINICAL HISTORY: Postoperative examination. FINDINGS: AP and crosstable lateral portable views of the left knee are obtained. A left knee arthrop lasty is in near anatomic alignment. There has been undersurface remodeling of the patella. No acute fracture is seen. There are expected postoperative changes around the knee including skin clips, a nick rgical drain, soft tissue edema, and subcutaneous gas. There is atherosclerotic calcification of the popliteal artery. IMPRESSION: Expected postoperative changes status post left knee arthroplasty. No acute fracture is s een. ACT 112: Negative or not required by law. Electronically signed by: Deng Rolle M.D. 06/13/2022 1:23 PM
--- NOTE | 2022-06-13 13:43 | Anesthesiology Progress Note ---
Date of Service June 13, 2022 Anesthesia Post Procedure Vital Signs Vital Signs: Temp Pulse Pulse Resp BP BP Pulse Ox 06/13/22 13:25 63 19 147/69 H 96 06/13/22 13:15 36.4 C L 62 17 137/62 97 06/13/22 13:05 58 L 13 142/60 H 93 06/13/22 12:55 58 L 16 136/61 95 06/13/22 12:45 53 L 12 137/65 98 06/13/22 12:37 37.0 C 64 13 125/59 L 97 06/13/22 07:45 36.5 C 44 L 20 170/66 H 171/73 H 96 O2 Del Method O2 Flow Rate 06/13/22 13:25 Nasal Cannula 2 06/13/22 13:15 Nasal Cannula 2 06/13/22 13:05 Room Air 06/13/22 12:55 Room Air 06/13/22 12:45 Oxymask 5 06/13/22 12:37 Oxymask 5 06/13/22 07:45 Room Air Transfer of Care Handoff Completed per policy Notes Mental Status: alert / awake / arousable Patient Amnestic to Procedure: Yes Nausea / Vomiting: adequately controlled Pain: adequately controlled Airway Patency, RR, SpO2: stable & adequate BP & HR: stable & adequate Hydration State: stable & adequate Neuraxial Anesthesia: was administered and sensory block is resolving Anesthetic Complications: no major complications apparent and Pt Satisfied with anesthetic care
[2022-06-13] MEDS ORDERED: oxyCODONE HCL IR 5 MG TAB (IMMEDIATE RELEASE) PO PRN (13:46)
[2022-06-13] MEDS ORDERED: SODIUM CHLORIDE 0.9% 1000ML 1,000 ML IV SCH (13:46)
[2022-06-13] MEDS ORDERED: bisacodyL 10 MG SUPP PR PRN (13:46)
[2022-06-13] MEDS ORDERED: ALBUTEROL 0.083% NEBU SOLN 3 ML VIAL INH PRN (13:46)
[2022-06-13] MEDS ORDERED: HYDROmorphone INJ 0.5 MG/0.5 ML SYR IV PRN (13:46)
[2022-06-13] MEDS ORDERED: NALOXONE HCL 0.4 MG/1 ML VIAL/CARP IV PRN (13:46)
[2022-06-13] MEDS ORDERED: VANCOMYCIN CONSULT ACTIVE PRN (13:46)
[2022-06-13] MEDS ORDERED: traMADol HCL 50 MG TABLET PO PRN (13:46)
[2022-06-13] MEDS ORDERED: ALBUTEROL HFA 8 GM INHALER INH PRN (13:46)
[2022-06-13] MEDS ORDERED: MAGNESIUM HYDROXIDE SUSP 30 ML UDC PO PRN (13:46)
[2022-06-13] MEDS: ACETAMINOPHEN 500 MG TAB PO SCH ×2 (16:04→21:21)
[2022-06-13] MEDS: Scopolamine CHECK PATCH PLACEMENT SCH (16:05)
[2022-06-13] MEDS: MONTELUKAST SODIUM 10 MG TABLET PO SCH (21:21)
[2022-06-13] MEDS: DICYCLOMINE HCL 10 MG CAP PO SCH (21:21)
[2022-06-13] MEDS: SENNA 8.6 MG TAB PO SCH (21:21)
[2022-06-13] MEDS: ATORVASTATIN 40 MG TAB PO SCH (21:21)
[2022-06-13] MEDS: METOPROLOL TARTRATE 25 MG TAB PO SCH (21:22)
[2022-06-13] MEDS: CeleBREX 200 MG CAP PO SCH (21:22)
[2022-06-13] MEDS: DOCUSATE SODIUM 100 MG CAP PO SCH (21:23)
[2022-06-13] MEDS: FUROSEMIDE 40 MG TAB PO SCH (21:23)
[2022-06-13] MEDS ORDERED: VANCOMYCIN HCL 1,000 MG in SODIUM CHLORIDE 0.9% 250 ML IV SCH (22:45)
[2022-06-14] MEDS: Scopolamine CHECK PATCH PLACEMENT SCH ×2 (00:18→07:28)
[2022-06-14] MEDS: ACETAMINOPHEN 500 MG TAB PO SCH ×3 (06:05→22:27)
[2022-06-14 07:05] LABS: Hematocrit (blood only) 33.9 % (37.0-47.0); Mean Corpuscular Hemoglobin 29.2 pg (25.0-34.0); Mean Corpuscular Hgb Conc 32.4 g/dL (32.0-36.0); Mean Corpuscular Volume 89.9 fL (80.0-100.0); Mean Platelet Volume 10.8 fL (9.4-12.4); Platelet Count 214 K/uL (130-400); RDW Coefficient of Variation 14.2 % (11.5-14.5); RDW Standard Deviation 46.5 fL (36.4-46.3); Red Blood Count 3.77 M/uL (4.20-5.40); White Blood Count 14.08 K/ul (4.8-10.8)
[2022-06-14 07:18] LABS: BUN Creatinine Ratio 27.4 (10-20); Calcium 8.9 mg/dl (8.6-10.3); Creatinine Clr Calc Pharmacy 29.5 ml/min; Est GFR (African American) 48.5 ml/min; Est GFR (Non-African American) 41.9 ml/min; Potassium 4.7 mmol/L (3.5-5.1)
[2022-06-14] MEDS: PANTOprazole 40 MG TAB PO SCH (07:27)
[2022-06-14] MEDS: DICYCLOMINE HCL 10 MG CAP PO SCH ×2 (07:27→20:28)
[2022-06-14] MEDS: CETIRIZINE HCL 10 MG TABLET PO SCH (07:27)
[2022-06-14] MEDS: PRENATAL VITAMIN 1 TAB PO SCH (07:27)
[2022-06-14] MEDS: CeleBREX 200 MG CAP PO SCH ×2 (07:28→20:30)
[2022-06-14] MEDS: APIXABAN 5 MG TABLET PO SCH ×2 (07:28→20:28)
[2022-06-14] MEDS: METOPROLOL TARTRATE 25 MG TAB PO SCH ×2 (07:28→20:29)
[2022-06-14] MEDS: FUROSEMIDE 40 MG TAB PO SCH ×2 (07:28→20:29)
[2022-06-14] MEDS: DOCUSATE SODIUM 100 MG CAP PO SCH ×2 (07:30→20:29)
[2022-06-14] MEDS ORDERED: dexAMETHasone 4 MG TAB PO SCH (08:00)
--- NOTE | 2022-06-14 09:20 | Orthopedic Progress Note ---
Date of Service June 14, 2022 Assessment & Plan (1) S/P total knee arthroplasty: Plan: Patient is postop day #1 status post left total knee arthroplasty doing well Recommend one more day inpatient for safety, fall precautions,and therapy due to lives alone and high fall risk Patient was advised on continue to use the knee immobilizer with ambulating until 06/15/2022 She will continue to participate in PT/OT Continue to utilize in the walker and use fall precautions Continue with ASHISH hose for DVT prophylaxis and will continue with Eliquis as previously prescribed PDMP will be queried and narcotic will be sent to her pharmacy for use of when she is discharged home She will have home services for physical therapy, anticipate discharge home with family on 06/15/2022 After 48 hours may resume all exercises including range of motion with therapy May do gentle knee ROM on her own and exercises without forcing now She will follow-up in our office appointments scheduled for suture removal Advised if any questions or concerns or change in symptoms to contact the office immediately. Admission and Anticipated Discharge Date Admission Date: June 13, 2022 Subjective Patient is an 86-year-old female who is status post a left total knee arthroplasty postop day 1. She was seen sitting upright in bedside chair this AM. She is alert and oriented x3 pleasant and conversive. She reports she is not having any pain at this time. She does report in the middle the night she had to take 1 pain pill. She states she feels great and is doing well. She reports that she has been using ice and this seems helpful. She has not had the knee immobilizer on. She denies any fever, chills, chest pain, shortness of breath or calf pain. She reports that her daughter is going to be coming from out of town and arriving Friday to assist with her care at home. Review of Systems Review of Systems: Please refer to HPI Physical Exam Physical Exam: General: Patient is alert and oriented x3 sitting upright in bedside chair conversive and pleasant. No acute distress. Integumentary and musculoskeletal: Dressing is intact. This was removed. There is a Silverlon waterproof dressing over anterior knee. This is clean dry and intact. Negative for erythema or drainage. Mild resolving ecchymosis over left lower extremity as to be expected. Very little edema in the lower extremity. Her calf is soft and nontender. Patient was maintained in knee extension no range of motion of knee was performed today per op report "no range of motion of the knee for 48 hours". Patient is able to do straight leg raise. Dorsal pedis pulse 1+ patient is able to actively dorsiflex and plantarflex ankle. ASHISH hose was applied and knee immobilizer applied by nurse. Left lower extremity is neurovascularly intact. Results & Data Vital Signs (Past 12 Hours) Vital Signs Temp Pulse Resp BP Pulse Ox O2 Del Method 06/14/22 06:34 36.7 C 54 L 18 155/77 H 97 Room Air 06/14/22 03:48 36.6 C 71 18 129/54 L 96 Room Air 06/13/22 23:40 37 C 65 16 132/51 L 96 Room Air Laboratory Results 06/14/22 06/14/22 Range/Units 06:33 06:33 WBC 14.08 H (4.8-10.8) K/ul RBC 3.77 L (4.20-5.40) M/uL Hgb 11.0 L (12.0-16.0) g/dl Hct 33.9 L (37.0-47.0) % MCV 89.9 (80.0-100.0) fL MCH 29.2 (25.0-34.0) pg MCHC 32.4 (32.0-36.0) g/dL RDW Std Deviation 46.5 H (36.4-46.3) fL RDW Coeff of Storm 14.2 (11.5-14.5) % Plt Count 214 (130-400) K/uL MPV 10.8 (9.4-12.4) fL Sodium 135 L (136-145) mmol/L Potassium 4.7 (3.5-5.1) mmol/L Chloride 104 (98-107) mmol/L Carbon Dioxide 26 (21-32) mmol/L Anion Gap 5 (3-11) BUN 32 H (6-23) mg/dl Creatinine 1.17 (0.6-1.2) mg/dl Est Cr Clr Drug Dosing 29.5 ml/min Est GFR ( Amer) 48.5 ml/min Est GFR (Non-Af Amer) 41.9 ml/min BUN/Creatinine Ratio 27.4 H (10-20) Glucose 118 H (70-99(Fasting)) mg/dl Calcium 8.9 (8.6-10.3) mg/dl Diagnostic Findings Knee X-Ray 06/13/22 12:50 TWO VIEWS LEFT KNEE CLINICAL HISTORY: Postoperative examination. FINDINGS: AP and crosstable lateral portable views of the left knee are obtained. A left knee arthroplasty is in near anatomic alignment. There has been undersurface remodeling of the patella. No acute fracture is seen. There are expected postoperative changes around the knee including skin clips, a surgical drain, soft tissue edema, and subcutaneous gas. There is atherosclerotic calcification of the popliteal artery. IMPRESSION: Expected postoperative changes status post left knee arthroplasty. No acute fracture is seen. ACT 112: Negative or not required by law. Electronically signed by: Deng Rolle M.D. 06/13/2022 1:23 PM
--- NOTE | 2022-06-14 12:48 | Hospitalist Consultation ---
Date of Consultation June 14, 2022 Assessment & Plan (1) Bradycardia: -The patient is current afebrile, hemodynamically stable, stable on RA -We were asked to evaluate the patient due to bradycardia with HR in the 40-50's -AM metoprolol dose had been held -The patient is completely asymptomatic, currently her ECG is showing sinus bradycardia with a HR of 58 -The scopolamine patch may be contributing to her bradycardia due to "vagal mimetic effects" per UpToDate -Will have the nursing staff remove her scopolamine patch -Will continue her metoprolol starting with her HS dose tonight -Instructed the patient to use caution while changing positions/standing and to give her body time too compensate before moving too quickly to avoid syncope/falls -Do not think that she needs to be monitored on tele at this time -Please reach out with any questions or concerns, we will continue to follow tomorrow Plan The patient was discussed with Dr. Feldman at the time of the consult Supervising Physician Co-Signing Physician Notes I personally saw and examined the patient. I verified all beal points and agree with Tenzin Donaldson PA-C with the following exceptions and/or additions: 86 year old female POD #1 Left TKA. Asymptomatic bradycardia post operatively. No chest pain, shortness of breath or dizziness O/E HS bradycardia, regular rate, no murmurs, Chest CTAB A/P Sinus bradycardia - Asymptomatic, do not suspect ACS. She still requires her metoprolol due to paroxysmal atrial tachycardia, will reduce parameters to HR < 50. Per outpatient holter in January when she was also asymptomatic her HR lowest was 38 bpm and average 60 bpm so this appears to be a chronic issue therefore no need for telemetry at this time. If she becomes symptomatic would transfer to telemetry. EKG shows HR 58 bpm without heart block. History of Present Illness Reason for Consultation: Post-op bradycardia Requesting Physician: Jonatan Kaur MD Attending Physician: Dr. Tal Feldman History of Present Illness Idalmis is an 86 year old female with a PMH significant for paroxysmal afib on Eliquis, HFpEF (LVEF of 50-54% as of 07/2021), GERD, mild persistent asthma, hyperlipidemia, chron's disease, and stage 3 CKD who presented to the [facility] OR on 06/13/22 for Left Total Knee Arthroplasty with Dr. Jonatan Kaur. Review of the patient's vitals show her to be afebrile, hemodynamically stable, stable on RA, but with post-op bradycardia with HR in the 40-50's. We were consulted due to bradycardia. Per review of the post-op note, anesthesia was listed as "Spinal MAC", EBL was listed as "50 cc", and no intraoperative complications were listed. Labs from this am were significant for a leukocytosis of 12, hgb of 11 (down from 12.6 on 06/05). Of note, the patient is typically on 25 mg PO Metoprolol tartrate BID for her Paroxysmal afib, however, her am dose was held due to bradycardia. The patient had a holter monitor placed on 02/15/22. Review of the report shows her HR to significantly fluctuate from as low as 38 BPM to 168 BPM when she is in PAT. At the time of the exam the patient was sitting in bed in no acute distress, she had just finished lunch. she states that she has felt "great" since her surgery yesterday. She has been up and working with PT/OT without issue. She denies recent fever, chills, chest pain, SOB, lightheadedness/dizziness, heart palpitations, abd pain, nausea, vomiting, diarrhea, dysuria, hematuria, LE swelling, and recent trauma. While speaking with her I noticed a patch behind her left ear. She and her nurses explained she has had the Scopolamine patch on since yesterday to prevent anesthesia associated nausea she has experienced in the past. Please refer to Dr. Feldman's attestation for any changes to the treatment plan. Allergies Allergy/AdvReac Type Severity Reaction Status Date / Time ampicillin Allergy Intermediate RASH Verified 06/13/22 07:25 cefazolin Allergy Intermediate HIVES Verified 06/13/22 07:25 clindamycin Allergy Intermediate RASH Verified 06/13/22 07:25 oxybutynin Allergy Intermediate RASH Verified 06/13/22 07:25 cephalexin AdvReac Intermediate PALPITATION Verified 06/13/22 07:25 S morphine AdvReac Intermediate HALUCINATIO Verified 06/13/22 07:25 N Home Medications Medication Instructions Recorded Confirmed Type cetirizine 10 mg tablet (Zyrtec) 10 mg PO QAM 08/14/21 06/13/22 History dicyclomine 10 mg capsule 10 mg PO BID 08/14/21 06/13/22 History furosemide 40 mg tablet 40 mg PO BID 08/14/21 06/13/22 History metoprolol tartrate 25 mg tablet 25 mg PO BID 08/14/21 06/13/22 History montelukast 10 mg tablet 10 mg PO HS 08/14/21 06/13/22 History (Singulair) prednisone 5 mg tablet 5 mg PO DAILY PRN ARTHRITIS 08/14/21 06/13/22 History vit no.133-ferrous 1 tab PO QAM 08/14/21 06/13/22 History fumarate 28 mg-folic acid 800 mcg tablet () rabeprazole 20 mg tablet,delayed 20 mg PO QAM 08/14/21 06/13/22 History release (AcipHex) acetaminophen 500 mg tablet 1,000 mg PO HS 06/03/22 06/13/22 History (Acetaminophen Extra Strength) acetaminophen 650 mg 1,300 mg PO QAM 06/03/22 06/13/22 History tablet,extended release albuterol sulfate 2.5 mg/3 mL 2.5 mg inhalation Q4H PRN 06/03/22 06/13/22 History (0.083 %) solution for nebulization Shortness Of Breath albuterol sulfate 90 mcg/actuation 1 inh inhalation QID PRN Shortness 06/03/22 06/03/22 History aerosol inhaler Of Breath alendronate 70 mg tablet 70 mg PO Q7D 06/03/22 06/13/22 History apixaban 5 mg tablet (Eliquis) 5 mg PO BID 06/03/22 06/13/22 History atorvastatin 40 mg tablet 40 mg PO HS 06/03/22 06/13/22 History oxycodone 5 mg tablet 5 - 10 mg PO Q4H PRN post op pain 06/14/22 Rx #20 tabs Patient History Medical History Asthma Stable Atrial fibrillation Chronic diastolic heart failure Chronic kidney disease Stage III Crohn's disease Stable, no recent issues Hyperlipidemia Hypertension Large hiatal hernia Poor historian Pulmonary HTN Surgical History H/O vein stripping Remote hx (years ago)- due to LLE phlebitis History of colectomy 12" colon resection (10/2021) History of esophagogastroduodenoscopy (EGD) History of total right hip arthroplasty Right DEB (09/16/17): SAB at L3/4 (x1 attempt) at [facility] Hx of bilateral cataract extraction Hx of colonoscopy Hx of total hysterectomy with removal of both tubes and ovaries Nausea and vomiting after administration of anesthetic agent Social History Smoking Status: Never smoker Second Hand Exposure: Yes (HX- A CHILD); Do You Dip or Chew Tobacco: No; Tobacco Cessation Education Requested by Patient: No Hx Alcohol Use: No Hx Substance Use: No Preferred Language: Yi Communication Ability: Effective Leather Cleaner Required: No Beliefs That Will Affect Care: None Current Living Situation: Alone Other Information That Helps Us Care for You: No Feels Safe at Home: Yes Safety Concerns: Feels Safe At This Time Assistive Devices: Walker Assistive Devices Comment: 2 PARTIAL PLATES; GLASSES PRN>WILL LEAVE DENTURES AND GLASSES AT HOME DOS Physical Exam Physical Exam: Physical Exam: General: In no acute distress, stated age, well-nourished, good hygiene HEENT: Normocephalic, atraumatic, no scleral icterus, pupils around round, symmetrical, and reactive to light, moist mucus membranes, trachea midline, no thyromegaly Chest/Pulm: No respiratory distress, symmetrical chest expansion, clear breath sounds throughout Cardiac: bradycardic rate, regular rhythm, no murmurs noted Abdomen: Negative for ascites and bruising, normoactive bowel sounds, soft, non-tender to palpation throughout Musculoskeletal: LLE currently wrapped and without signs of bleeding, patient with intact ROM and sensation in the BL LE's Extremities: Radial, dorsalis pedis, and posterior tibial pulses are intact and symmetrical, no edema noted in the BL LE's Skin: Warm, dry, no rashes , lesions, or scars noted Neuro: Alert and oriented to person, place, month, year, and president, no focal defects, CN II-XII tested and intact, finger to nose test negative, no tremors noted Psych: No acute distress, calm and cooperative during the exam Results & Data Results & Data Vital Signs (Past 12 Hours) Vital Signs Temp Pulse Resp BP Pulse Ox O2 Del Method 06/14/22 10:57 36.4 C L 44 L 16 145/69 H 98 Room Air 06/14/22 06:34 36.7 C 54 L 18 155/77 H 97 Room Air 06/14/22 03:48 36.6 C 71 18 129/54 L 96 Room Air Laboratory Results Abnormal lab results 06/14/22 06/14/22 Range/Units 06:33 06:33 WBC 14.08 H (4.8-10.8) K/ul RBC 3.77 L (4.20-5.40) M/uL Hgb 11.0 L (12.0-16.0) g/dl Hct 33.9 L (37.0-47.0) % RDW Std Deviation 46.5 H (36.4-46.3) fL Sodium 135 L (136-145) mmol/L BUN 32 H (6-23) mg/dl BUN/Creatinine Ratio 27.4 H (10-20) Glucose 118 H (70-99(Fasting)) mg/dl Diagnostic Findings Knee X-Ray 06/13/22 12:50 TWO VIEWS LEFT KNEE CLINICAL HISTORY: Postoperative examination. FINDINGS: AP and crosstable lateral portable views of the left knee are obtained. A left knee arthroplasty is in near anatomic alignment. There has been undersurface remodeling of the patella. No acute fracture is seen. There are expected postoperative changes around the knee including skin clips, a surgical drain, soft tissue edema, and subcutaneous gas. There is atherosclerotic ca lcification of the popliteal artery. IMPRESSION: Expected postoperative changes status post left knee arthroplasty. No acute fracture is seen. ACT 112: Negative or not required by law. Electronically signed by: Deng Rolle M.D. 06/13/2022 1:23 PM ECG Additional Comments: Sinus bradycardia Otherwise normal ECG When compared with ECG of 14-AUG-2021 12:02, No significant change was found PG Care Time/CCT Total # of Minutes Spent Total Time Spent with Patient: Total time spent is greater than 50% in coordination of care (as documented) at patient's floor/unit and/or counseling patient: C[place] [address] IN/OBS CONSULT LVL 4,60M Patient Type Established Medical Decision Making Moderate Complexity Diagnoses Bradycardia R00.1
--- NOTE | 2022-06-14 18:10 | Electrocardiogram Report ---
Test Reason : Blood Pressure : / mmHG Vent. Rate : 058 BPM Atrial Rate : 058 BPM P-R Int : 166 ms QRS Dur : 080 ms QT Int : 434 ms P-R-T Axes : 046 -16 036 degrees QTc Int : 426 ms Sinus bradycardia Otherwise normal ECG When compared with ECG of 14-AUG-2021 12:02, No significant change was found Confirmed by Emre Dominguez ([id number]) on 06/14/2022 6:10:13 PM Referred By: Jonatan Kaur Confirmed By:Kar Dominguez
[2022-06-14] MEDS: ATORVASTATIN 40 MG TAB PO SCH (20:28)
[2022-06-14] MEDS: MONTELUKAST SODIUM 10 MG TABLET PO SCH (20:28)
[2022-06-14] MEDS: SENNA 8.6 MG TAB PO SCH (20:29)
[2022-06-15] MEDS: ACETAMINOPHEN 500 MG TAB PO SCH (05:27)
--- NOTE | 2022-06-15 08:07 | Hospitalist Progress Note ---
Date of Service June 15, 2022 Assessment & Plan (1) Bradycardia: Plan: Prior Low HR on outpt monitor w/ [facility] to 38s reported, no symptoms from PAT w/ adjustments to her meds outpatient. Continued metoprolol w/ hold parameters however asymptomatic as stated EKG w/ sinus irving Sopalamine patch discontinued Labs ordered/reviewed this morning. Hgb stable, acute blood loss from surgery but stable at 11.3. WBC wnl. Afebrile. BUN/Cr slightly elevated 38/1.29 and review of meds w/ her refusing lasix 40mg PO BID. Discussed w/ patient given her hx CHF and she does this on regular basis w/ appointments if she has to go anywhere to prevent having to go. She does NOT appear to be significantly volume overloaded at present, no LE edema/pulm congestion or symptoms reported and can resume her usual lasix for this evening at home. Patient notes she has appt w/ [facility] in the next coupe weeks. Rec'd discussing possible once daily diuretics/change to torsemide or bumex for AM dosing but defer to them in follow up. Stable bradycardia w/o symptoms and stable for d/c from medical standpoint and rec she r/u cards outpatient as she already has scheduled. Plan Discussed w/ orthopedics ok for dc from medical standpoint. Please call with any questions/concerns Admission and Anticipated Discharge Date Admission Date: June 13, 2022 Supervising Physician Co-Signing Physician Notes The patient was not seen by me. The chart was reviewed. Case discussed with SLY Block. Agree with assessment and plan Subjective Patient evaluated this morning, doing well, anticipating dc. Concerns about br adycardia but asymptomatic and holter w/ cards outpatient w/ rates to upper 30s. No lightheadedness/palpitations, chest pain, shortness of breath, abdominal fullness/tenderness, decreased appetite. States pain well controlled with Tylenol and plans on HH therapy and then [facility] after 2 weeks. Had left knee done 20 years ago and no issues. No increased LE edema, states she never gets any. Discussed not taking her lasix -- she states she does not take when she has appointments/places to go. Discussed given does not appear significantly volume overload can resume at home and have outpt f/u cards. She notes she has appointment within the next month. Discussed possible consideration for torsemide/bumex or once daily diuretics in follow up to prevent missing doses in future if able to tolerate w/o symptoms. Discussed case with orthopedics and will plan for d/c today. Review of Systems Review of Systems: All systems reviewed & are unremarkable except as noted in HPI & below Physical Exam Physical Exam: General: WD/WN female sitting up in bed, dressing and ready to go home, NAD HEENT: head atraumatic, normocephalic, mmm, trachea midline without deviation, no obvious JVD Resp: CTA, no w/c, on room air 98% CV: bradycardic, +murmur, no rub/gallop, no pitting edema, pulses palpable GI: +BS, soft/NT : no alfonso MSK/Neuro: prior scar R knee, L knee dressing c/d/i some blood noted but no erythema/drainage, NVI Psych: AOx3, pleasant and cooperative Results & Data Results & Data Vital Signs (Past 12 Hours) Vital Signs Temp Pulse Pulse Resp BP Pulse Ox O2 Del Method 06/15/22 06:35 36.5 C 46 L 14 168/65 H 98 Room Air 06/14/22 20:26 36.6 C 44 L 16 159/71 H 95 Room Air Laboratory Results 06/15/22 06/15/22 06/14/22 Range/Units 08:20 08:20 12:47 WBC 10.41 (4.8-10.8) K/ul RBC 3.84 L (4.20-5.40) M/uL Hgb 11.3 L (12.0-16.0) g/dl Hct 34.4 L (37.0-47.0) % MCV 89.6 (80.0-100.0) fL MCH 29.4 (25.0-34.0) pg MCHC 32.8 (32.0-36.0) g/dL RDW Std Deviation 46.7 H (36.4-46.3) fL RDW Coeff of Storm 14.4 (11.5-14.5) % Plt Count 210 (130-400) K/uL MPV 10.9 (9.4-12.4) fL Sodium 139 (136-145) mmol/L Potassium 4.8 (3.5-5.1) mmol/L Chloride 105 (98-107) mmol/L Carbon Dioxide 27 (21-32) mmol/L Anion Gap 7 (3-11) BUN 38 H (6-23) mg/dl Creatinine 1.29 H (0.6-1.2) mg/dl Est Cr Clr Drug Dosing 26.7 ml/min Est GFR ( Amer) 43.1 ml/min Est GFR (Non-Af Amer) 37.2 ml/min BUN/Creatinine Ratio 29.5 H (10-20) Glucose 95 (70-99(Fasting)) mg/dl Calcium 9.4 (8.6-10.3) mg/dl Magnesium 1.8 1.7 (1.7-2.4) mg/dl PG Care Time/CCT Total # of Minutes Spent Total Time Spent with Patient: Total time spent is greater than 50% in coordination of care (as documented) at patient's floor/unit and/or counseling patient: Coding Level of Care Code 65894 SUB INP/OBS CARE 125MIN Diagnoses Bradycardia R00.1
--- NOTE | 2022-06-15 08:36 | Orthopedic Progress Note ---
Date of Service June 15, 2022 Assessment & Plan (1) S/P total knee arthroplasty: Plan: Patient is postop day #2 status post left total knee arthroplasty doing well. She does have bradycardia. She will continue to participate in PT/OT Continue to utilize in the walker and use fall precautions Continue with ASHISH hose for DVT prophylaxis and will continue with Eliquis as previously prescribed May do gentle knee ROM on her own She will follow-up in our office appointments scheduled for suture removal Patient may discharge home today if cleared by internal medicine to do so. In addition to her orthopedic follow-up she should keep any other follow-up appointments as instructed by the internal medicine service. Admission and Anticipated Discharge Date Admission Date: June 13, 2022 Subjective Patient was seen by internal medicine yesterday for bradycardia. She remains asymptomatic with no lightheadedness chest pain shortness of breath or any other concerning symptoms. She reports her knee is feeling well. Denies any pain in the knee. Yesterday she says she was able to walk up and down the hallways 3 times with the physical therapist. She reports that her daughter is going to be coming from out of town and arriving today to assist with her care at home. Physical Exam Physical Exam: Patient is sitting up in a chair this morning and is already finished her breakfast. Alert and oriented x3. Left knee exam shows dressing to show scant spotty bloody drainage. Mild swelling is appropriate for this stage postoperatively. Distally neurovascularly intact. Results & Data Vital Signs (Past 12 Hours) Vital Signs Temp Pulse Resp BP Pulse Ox O2 Del Method 06/15/22 06:35 36.5 C 46 L 14 168/65 H 98 Room Air
[2022-06-15 08:46] LABS: Hematocrit (blood only) 34.4 % (37.0-47.0); Hemoglobin 11.3 g/dl (12.0-16.0); Mean Corpuscular Hemoglobin 29.4 pg (25.0-34.0); Mean Corpuscular Hgb Conc 32.8 g/dL (32.0-36.0); Mean Corpuscular Volume 89.6 fL (80.0-100.0); Mean Platelet Volume 10.9 fL (9.4-12.4); Platelet Count 210 K/uL (130-400); RDW Coefficient of Variation 14.4 % (11.5-14.5); RDW Standard Deviation 46.7 fL (36.4-46.3); Red Blood Count 3.84 M/uL (4.20-5.40); White Blood Count 10.41 K/ul (4.8-10.8)
[2022-06-15 09:02] LABS: BUN Creatinine Ratio 29.5 (10-20); Calcium 9.4 mg/dl (8.6-10.3); Creatinine Clr Calc Pharmacy 26.7 ml/min; Est GFR (African American) 43.1 ml/min; Est GFR (Non-African American) 37.2 ml/min; Magnesium 1.8 mg/dl (1.7-2.4); Potassium 4.8 mmol/L (3.5-5.1)
[2022-06-15] MEDS: DICYCLOMINE HCL 10 MG CAP PO SCH (09:30)
[2022-06-15] MEDS: CeleBREX 200 MG CAP PO SCH (09:30)
[2022-06-15] MEDS: APIXABAN 5 MG TABLET PO SCH (09:30)
[2022-06-15] MEDS: CETIRIZINE HCL 10 MG TABLET PO SCH (09:30)
[2022-06-15] MEDS: FUROSEMIDE 40 MG TAB PO SCH (09:31)
[2022-06-15] MEDS: PRENATAL VITAMIN 1 TAB PO SCH (09:31)
[2022-06-15] MEDS: PANTOprazole 40 MG TAB PO SCH (09:31)
[2022-06-15] MEDS: METOPROLOL TARTRATE 25 MG TAB PO SCH (09:32)
[2022-06-15] MEDS: DOCUSATE SODIUM 100 MG CAP PO SCH (09:33)
== END 2022-06-15 13:36 | disposition home health service (06) ==
LOC: 3E 07:02 → ASU 07:02